=== PATIENT | male | born 1980 | race American Indian/Alaskan Native ===

== ENCOUNTER 2017-12-23 13:54 | Emergency (ER) | payer BC, SELFPAY ==
[2017-12-23 14:01] VITALS: BP 151/84; PULSE 74; RESP 16; TEMP 36.6; O2SAT 98
--- NOTE | 2017-12-23 14:25 | DI.RAD_ITS ---
SYMPTOMS/DIAGNOSIS: PROXIMAL 5TH METATARSAL PAIN AFTER TRAUMA LEFT FOOT: Three views. No acute fracture or dislocation is identified. No radiopaque foreign bodies are seen in the soft tissues.
--- NOTE | 2017-12-23 14:29 | ED.GENADUL_ITS ---
Discharge Plan Disposition Patient Disposition: HOME Condition: Fair Discharge Details Chief Complaint: Orthopedic Clinical Impression: Ankle sprain, Foot trauma Primary Care Provider: Keysha Ortiz ED Provider: Sherry Tanner Home Meds and New Rx's Prescriptions: Continue cyclobenzaprine 10 mg tablet 10 mg PO TID PRN (Reason: muscle spasm) Qty: 30 RF: 0 Aspirin/Acetaminophen/Caffeine [Excedrin Extra Strength Caplet] 1 EACH tablet 1 ea PO PRN PRNRF: 0 ibuprofen 200 MG capsule 200 mg PO PRN PRNRF: 0 Discharge Instructions Instructions: Ankle Sprain (ED) Additional Instructions: Encourage rest, ice, elevation. Tylenol and/or ibuprofen as needed for discomfort. You with ankle brace until pain has completely subsided. Please follow-up with primary care in the next 1-2 weeks if pain is not improved. Please avoid activities that cause increased pain. If you develop new or worsening symptoms please seek care urgently once again. I will contact you with any positive results from the x-ray that is still pending Referrals: Keysha Ortiz MD [Primary Care Provider] - Discharge Data Discharge Date/Time-TO BE ENTERED AT DEPARTURE: 12/23/17 16:10 Medical Decision Making Patient 37-year-old male presents today with chief complaint of left foot and ankle pain. He reports that he was playing football this morning, when another player kicked him in the lateral aspect of the ankle. States that that time he felt a pop. Denies any rotational injury. Denies any pain over the lateral malleolus. States the pain is posterior to this. Patient was wearing an ankle brace and states that he chronically wears ankle braces particularly when active as he has weak ankles. Has been able to ambulate but is walking with an antalgic gait. Reports the pain can be quite severe when trying to ambulate on the extremity. On exam, patient is not having any pain over the lateral malleolus. No pain on palpation over the Achilles. Full range of motion of the ankle. Negative Coyle test. No palpable defect of the Achilles. Pain seems to be more over the deltoid ligament. Patient is also endorsing discomfort with palpation over the proximal fifth metatarsal. Reports that somebody stepped on the foot playing football and since then he has had pain in this area. Denies any history of fracture injury to this foot. However, he does report that he has fractured his proximal fifth metatarsal on the contralateral side and that this feels quite similar. Will obtain radiographic images to evaluate for possible bony abnormality. Patient is declining any analgesics at this time. Review the x-ray and on. Appreciate any acute bony pathology. However, still pending radiologist report. Radiology report is currently delayed secondary to influx and [facility] being overloaded. Patient is wanting discharge at this time with radiology report still pending. I advised I would contact him with any positive results. Encourage rest, ice, elevation. Advised that we treat like an ankle sprain. Patient has had multiple of these in the past and seems well versed in how to care for these. He has a good ankle brace which I encouraged to continue with until pain is completely subsided. All his questions and concerns were addressed and he is in agreement with this plan. Final radiology reading concurrent with my assessment of the imaging, no acute abnormality HPI General Mode of arrival: ambulatory . Date/Time Provider Initiated Documentation: 12/23/17 14:17 . Limitations to Documentation: no limitations . Information obtained by: patient . History of Present Illness 37 year old M presents to the emergency department with the chief complaint of left foot and ankle pain, described as moderate, Quality is described as aching, and is localized to the left and lower extremity. Patient reports no radiation. Patient started experiencing this hour(s) and it has been constant. Immobilization improves symptom(s), Immoblization worsens symptoms . Patient notes no other symptoms.. Patient did receive the following treatments prior to arrival, other (patient was wearing lace up ankle brace at the time of the incident, still has this on. ) Related Data Home Medications Medication Instructions Recorded Confirmed Aspirin/Acetaminophen/Caffeine 1 ea PO PRN PRN 04/16/17 12/23/17 [Excedrin Extra Strength Caplet] ibuprofen 200 mg PO PRN PRN 04/16/17 12/23/17 cyclobenzaprine 10 mg tablet 10 mg PO TID PRN #30 tab 12/10/17 12/23/17 Previous Rx's Medication Instructions Recorded cyclobenzaprine 10 mg tablet 10 mg PO TID PRN #30 tab 12/10/17 Allergies Allergy/AdvReac Type Severity Reaction Status Date / Time sulfamethoxazole Allergy Mild Itching Unverified 12/23/17 14:04 [From Bactrim] trimethoprim [From Bactrim] Allergy Mild Itching Unverified 12/23/17 14:04 amoxicillin [Amoxicillin] Allergy Unknown Hives Unverified 12/23/17 14:04 amoxicillin trihydrate Allergy Unknown Hives Unverified 12/23/17 14:04 [From Augmentin] General Stated Complaint: Orthopedic RANJIT: 4 Review of Systems Constitutional Reports as per HPI, Denies chills, Denies fever(s) and Denies weakness Musculoskeletal Reports as per HPI, Reports abnormal gait (ambulating with a minimally antalgic gait), Denies joint swelling, Denies muscle weakness, Denies numbness and Denies tingling Integumentary/Breasts Denies rash, Denies skin swelling and Denies wounds Neurologic Reports as per HPI, Reports abnormal gait (ambulating with a minimally antalgic gait), Denies numbness, Denies tingling and Denies weakness PFSH Family History Father Essential hypertension Heart disease Hyperlipidemia Arthritis Other Alcohol abuse Social History 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al status: employed 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: [employer] Smoking/Tobacco Use Status: Former Tobacco Use substance use type: does not use seatbelt use: always Surgical History H/O Achilles tendon repair (Resolved) S/P tonsillectomy (Resolved ~11/17/10) Excision, Distal Clavicle (08/01/17) Repair, ACL (06/04/13) Exam Const General: cooperative, healthy appearing, comfortable, no acute distress, well developed and well groomed Nutritional Appearance: average body habitus and well nourished Orientation: alert and awake Eyes General: appearance normal, both eyes and all related structures Resp Effort & Inspection: normal respiratory effort, able to speak in complete sentences and no respiratory distress Auscultation: clear to auscultation bilaterally Cardio Rate: regular rate Rhythm: regular rhythm Heart Sounds: S1 normal and S2 normal Skin General skin exam: no rashes or lesions noted Trauma: no lacerations or abrasions Neuro General: alert, awake and oriented x3 Cognition: normal cognition Speech: speech normal Gait: antalgic (minimally antalgic gait, favoring the left ankle) Motor: muscle tone normal throughout Sensory Exam: no sensory deficits noted Extrem General: abnormal to inspection (exam of the LLE significant for pain with palpation over the deltoid ligament, worse toward the inferior and posterior areas. No pain with palpation voer the lateral or medial malleolus. Full ROM, plantar flexion does elicit discomfort. Pain over the proximal 5th metatarsal, no pain elsewhere abo), full ROM, normal capillary refill, no joint enlargement , no pedal edema and no calf tenderness (no pain with palpation over the proximal fibular head or neck) Psych Appearance: grossly normal and well kempt Mental Status: mental status grossly normal Speech and Movement: speech and movement normal Course Vital Signs Temperature 36.6 C 12/23/17 14:01 Pulse 74 12/23/17 14:01 Respiratory Rate 16 12/23/17 14:01 Blood Pressure 151/84 H 12/23/17 14:01 Pulse Oximetry 98 12/23/17 14:01 Temperature 36.6 C 12/23/17 14:01 Temperature Source Skin 12/23/17 14:01 Pulse 74 12/23/17 14:01 Respiratory Rate 16 12/23/17 14:01 Respiratory Effort Non-Labored 12/23/17 14:01 Blood Pressure 151/84 H 12/23/17 14:01 Blood Pressure Position Sitting 12/23/17 14:01 Pulse Oximetry 98 12/23/17 14:01 Oxygen Delivery Method Room Air 12/23/17 14:01 Oxygen Flow Rate 0 12/23/17 14:01 Pain Level 8 12/23/17 14:01
--- NOTE | 2017-12-23 16:16 | DI.VRAD_ITS ---
EXAM: XR Left Foot Complete, 3 or More Views CLINICAL HISTORY: 37 years old, male; Pain; Foot; Left; Patient HX: Proximal 5th metatarsal pain after trauma TECHNIQUE: Frontal, lateral and oblique views of the left foot. COMPARISON: No relevant prior studies available. FINDINGS: Limitations: The fifth digit is flexed. Bones/joints: Mild degenerative changes. Possible old healed medial malleolus fracture. No dislocation. Soft tissues: Unremarkable. No radiopaque foreign body. IMPRESSION: No definitive fracture, fracture lucency or dislocation. Flexion of the fifth digit, please correlate clinically Dictated and Authenticated by: Nasima Newby MD. Ordering:DMITRIY THOMPSON MD
== END 2017-12-23 16:10 | disposition home or self-care (01) ==
PROVIDERS: Emergency Provider Physician Assistant; PCP Internal Medicine
DX: S93.402A Sprain of unspecified ligament of left ankle, initial encounter (principal); W50.1XXA Accidental kick by another person, initial encounter; Y93.61 Activity, american tackle football
CPT/HCPCS: 99283; 73630; 99282

== ENCOUNTER 2018-06-04 13:45 | Outpatient (CLI) | payer BC, SELFPAY ==
--- NOTE | 2018-06-04 13:28 | DI.RAD_ITS ---
SYMPTOMS/DIAGNOSIS: COCCYX PAIN, M54.3, SACROCOCCYGEAL DISORDER COCCYX: The visualized portions of sacrum include the mid portion of the first sacral ala. The coccyx is suboptimally visualized due to the patient's body habitus but no gross abnormality is seen. If there is any further clinical question, then the examination could be correlated with a CT or MRI.
== END 2018-06-04 14:05 ==
PROVIDERS: PCP Internal Medicine; Visit Provider Internal Medicine
DX: M53.3 Sacrococcygeal disorders, not elsewhere classified (principal)
CPT/HCPCS: 72220

== ENCOUNTER 2018-06-25 08:57 | Outpatient (REF) | payer BC, SELFPAY ==
[2018-06-25 12:30] LABS: Cholesterol 181 mg/dL (50-200); Glucose 90 mg/dL (70-100); HDL Cholesterol 30 mg/dL (40-60); LDL CHOLESTEROL 111 mg/dL (<100); Triglyceride 197 mg/dL (30-150)
== END 2018-06-25 09:17 ==
LOC: LBN 08:57
PROVIDERS: PCP Internal Medicine; Visit Provider Internal Medicine
DX: E78.5 Hyperlipidemia, unspecified (principal); Z83.3 Family history of diabetes mellitus
CPT/HCPCS: 80061; 82947; 83721

== ENCOUNTER 2018-12-31 07:12 | Outpatient (CLI) | payer BC, SELFPAY ==
--- NOTE | 2018-12-31 11:11 | DI.RAD_ITS ---
EXAM: XR HIP LT COMPLETE AP PELVIS CLINICAL HISTORY: HIP PAIN TECHNIQUE: COMPARISON: LEFT HIP COMPLETE from 03/25/2012 FINDINGS: Three views were obtained. No bony or soft tissue abnormality seen. There are probable small access ory ossicles of the acetabula bilaterally. IMPRESSION:
--- NOTE | 2018-12-31 11:52 | DI.RAD_ITS ---
EXAM: XR HIP RT AP LAT ONLY CLINICAL HISTORY: HIP PAIN TECHNIQUE: COMPARISON: XR HIP LT COMPLETE AP PELVIS from 12/31/2018 FINDINGS: Two views were obtained. Possible small accessory ossicle of the acetabulum. No bony or soft tissue abnormality seen. IMPRESSION:
== END 2018-12-31 07:32 ==
PROVIDERS: PCP Internal Medicine; Visit Provider Student in an Organized Health Care Education/Training Program
DX: M25.552 Pain in left hip (principal); M25.551 Pain in right hip; M89.8X8 Other specified disorders of bone, other site
CPT/HCPCS: 73502

== ENCOUNTER 2019-01-18 14:52 | Emergency (ER) | payer BC, SELFPAY ==
[2019-01-18 14:58] VITALS: BP 170/93; PULSE 77; RESP 16; TEMP 36.6; O2SAT 97
--- NOTE | 2019-01-18 14:58 | W.ED.GENAD ---
Discharge Plan Disposition Patient Disposition: HOME Condition: Good Discharge Details Chief Complaint: Orthopedic Clinical Impression: Acute knee pain Primary Care Provider: Keysha Ortiz ED Provider: Sherry Tanner Home Meds and New Rx's Prescriptions: Continued famotidine 20 mg tablet 20 mg PO BID Qty: 180 RF: 3 Aspirin/Acetaminophen/Caffeine [Excedrin Extra Strength Caplet] 1 EACH tablet 1 ea PO PRN PRNRF: 0 nortriptyline 25 mg capsule 25 mg PO QHS PRN (Reason: migraine headache) Qty: 90 RF: 1 acetaminophen [Tylenol] 325 mg Tablet 1,000 mg PO PRN PRNRF: 0 ibuprofen 600 mg Tablet 600 mg PO PRN PRNRF: 0 meloxicam 15 mg Tablet,Disintegrating 15 mg PO HS RF: 0 Discharge Instructions Instructions: Knee Pain (ED) Additional Instructions: Encourage hydration. Please continue with ibuprofen 600 mg every 6 hours for discomfort and inflammation. You may augment this with Tylenol as needed. Rest, ice, elevation. Please continue with knee immobilizer for pain persist. He may take this off and practice gentle range of motion. Please avoid activities that cause undue discomfort. Please follow-up with orthopedics, please call Sunday to schedule follow-up appointment. If you develop fever/chills, increased pain or other new/worsening symptoms please seek care urgently once again. Stand Alone Forms: Work Release Referrals: Sedrick Vera MD [ [facility] STAFF PHYSICIAN] - Keysha Ortiz MD [Primary Care Provider] - Discharge Data Discharge Date/Time-TO BE ENTERED AT DEPARTURE: 01/18/19 16:10 Medical Decision Making Patient is a 38-year-old male presenting with chief complaint of right knee pain. He reports that he has had ACL repair on this knee historically. Reports that he typically has no knee pain but occasional has catching/locking and associates this with twisting or squatting movements. Reports that today he twisted after closing a window shade and had a sudden onset of pain. Unable to flex past 20 now. Reports severe pain with movement of the knee. Has kept his let in his post operative brace and has this locked in a straight leg position. With this on has been able to ambulate. Took tylenol and/or Ibuporfen as needed for discomfort. States that he has had catching and locking in the knee historically but typically this resolves fairly quickly after incident. Reports that this is worse with any rotational movements or squatting. Denies any fevers or chills. HAs not noting swelling. On exam, patient appears uncomfortable. He ambulated in a straight leg immobilizer with weightbearing well. However, he has severe pain with any type of flexion, unable to flex approximately 20 degrees. Ligamentously intact. No effusion. No erythema or warmth. I have low suspicion for fracture, feel that imaging is appropriate given the severity of his discomfort and surgical history. Reviewed x-rays, no acute abnormality is noted. He does have osteoarthritic changes but I do not appreciate any acute issues causing today's discomfort. Patient was given a muscle relaxer to try to help with range of motion. After this was given, attempted to range the knee further and was only able to get to approximately [address] Alvarez who does not feel emergent issue and is likely associated with muscle spasm. Advised continuing with anti-inflammatory brace to help with discomfort. I discussed this plan with the patient. Given his history, I am concerned for possible meniscal injury. He was given return precautions. He will call orthopedics on Sunday to schedule follow-up. All of his questions and concerns were addressed and he is in agreement this plan. HPI General Mode of arrival: ambulatory. Date/Time Provider Initiated Documentation: 01/18/19 14:58. Limitations to Documentation: no limitations. Information obtained by: patient and RN notes reviewed. History of Present Illness 38 year old M presents to the emergency department with the chief complaint of right knee pain, described as moderate (no pain when at rest, pain with ambulation or flexion), Quality is described as stabbing, and is localized to the right and lower extremity. Patient reports no radiation. Patient started experiencing this hour(s) and it has been constant. Immobilization improves symptom(s), Movement worsens symptoms . Patient notes no other symptoms.. Patient did receive the following treatments prior to arrival, NSAID Related Data Home Medications Medication Instructions Recorded Confirmed Aspirin/Acetaminophen/Caffeine 1 ea PO PRN PRN 04/16/17 01/18/19 [Excedrin Extra Strength Caplet] nortriptyline 25 mg capsule 25 mg PO QHS PRN #90 cap 10/08/18 01/18/19 famotidine 20 mg tablet 20 mg PO BID #180 tab 12/17/18 01/18/19 acetaminophen [Tylenol] 1,000 mg PO PRN PRN 01/18/19 01/18/19 ibuprofen 600 mg PO PRN PRN 01/18/19 01/18/19 meloxicam 15 mg PO HS 01/18/19 01/18/19 Previous Rx's Medication Instructions Recorded nortriptyline 25 mg capsule 25 mg PO QHS PRN #90 cap 10/08/18 famotidine 20 mg tablet 20 mg PO BID #180 tab 12/17/18 Allergies Allergy/AdvReac Type Severity Reaction Status Date / Time sulfamethoxazole Allergy Mild Itching Verified 01/18/19 15:02 [From Bactrim] trimethoprim [From Bactrim] Allergy Mild Itching Verified 01/18/19 15:02 amoxicillin [Amoxicillin] Allergy Unknown Hives Verified 01/18/19 15:02 amoxicillin trihydrate Allergy Unknown Hives Verified 01/18/19 15:02 [From Augmentin] General RANJIT: 4 Review of Systems Constitutional Constitutional: Reports as per HPI, Denies chills, Denies fever(s), Denies headache(s) and Denies weakness ENT Ears, Nose, Mouth, and Throat: Denies headache(s) Cardiovascular Cardiovascular: Reports as per HPI Respiratory Respiratory: Reports as per HPI and Denies cough Musculoskeletal Musculoskeletal: Reports as per HPI, Reports abnormal gait and Denies tingling Integumentary/Breasts Skin/Breast: Reports as per HPI, Denies rash and Denies wounds Neurologic Neurologic: Reports as per HPI, Reports abnormal gait, Denies headache(s), Denies tingling, Denies paresthesias and Denies weakness [facility] Medical History Complete tear, knee, anterior cruciate ligament (Resolved 04/12/13) Repair 06-04-13 History of low back pain (Acute) Hx of migraines (Acute) Lumbar disc herniation (Acute) Surgical History Excision, Distal Clavicle (08/01/17) INGA PROCEDURE RIGHT- H/O Achilles tendon repair (Resolved) H/O surgical procedure (Resolved) a. Tonsillectomy 11/2010 b. Right ACL repair 05/2013 c. 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 SOCIAL SERVICES Pets and animals: Yes Pets and animals: dog(s) How often do you talk on the phone with friends or family?: three or more times per week Panel score (0-1 are the most socially isolated patients): 1 What type of physical activity do you participate in: regular exercise and other Details: weight lifting Duration: 45-60 minutes/day Frequency: 3-4 times per week Seatbelt use: always Drive intox or ride w/intox 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 helper: No Working smoke detector in home: Yes Fire extinguisher in home: Yes Carbon monox detector in home: Yes Do you feel safe at home: Yes Exam Const General: cooperative, healthy appearing, comfortable, no acute distress, well developed and well groomed Nutritional Appearance: well nourished and overweight Orientation: alert and awake Resp Effort & Inspection: normal respiratory effort, able to speak in complete sentences and no respiratory distress Cardio Rate: regular rate Rhythm: regular rhythm Skin General skin exam: no rashes or lesions noted Lesions: no lesions Rashes: no rashes Trauma: no lacerations or abrasions Neuro General: alert and awake Cognition: normal cognition Speech: speech normal Gait: normal gait Motor: muscle tone normal throughout Sensory Exam: no sensory deficits noted Extrem Right lower extremity: normal to inspection, normal capillary refill, no joint enlargement, hip/thigh Details: normal to inspection, knee Details: normal to inspection and knee ligament exam normal Details: anterior drawer test normal, posterior drawer test normal, valgus stress test normal and varus stress test normal; no tenderness (indicates the posterior medial aspect of knee as area of pain, none with palpation), no swelling, ROM abnormal, no abrasions, no lacerations, no ecchymosis, no deformity and no unusual warmth and lower leg Details: normal to inspection and no edema; no erythema, no tenderness, no localized swelling and no palpable cords; ROM limited (full extension, limited flexion to only 20 degrees) Psych Appearance: grossly normal and well kempt Mental Status: mental status grossly normal Speech and Movement: speech and movement normal
--- NOTE | 2019-01-18 15:07 | DI.RAD_ITS ---
EXAM: XR KNEE RT 4V AP,LAT,ADIN,PAT INDICATION: knee pain, limited ROM. COMPARISON: RIGHT KNEE LIMITED 1 OR 2 VIEW from 06/04/2013 TECHNIQUE: 2D digital imaging was performed. FINDINGS: Patient is status post ACL repair. There are advanced underlying degenerative changes throughout. N o fracture or joint effusion is seen. IMPRESSION: Postsurgical and degenerative changes.
[2019-01-18] MEDS: diazePAM 5 MG TAB PO (15:13)
--- NOTE | 2019-01-18 16:20 | DI.VRAD_ITS ---
PROCEDURE INFORMATION: Exam: XR Left Knee Exam date and time: 01/18/2019 3:10 PM Clinical history: 38 years old, male; Pain; Knee; Right; Prior surgery; Surgery date: 6+ months; Surgery type: Acl repair 6 years ago TECHNIQUE: Imaging protocol: XR Left knee. Views: 4 or more views. COMPARISON: No relevant prior studies available. FINDINGS: Bones/joints: Screw in lateral femoral condyle Tricompartmental joint space narrowing and osteophyte formation consistent with degenerative changes. Well-corticated ossific fragment along the lower pole of the patella consistent with old avulsion fracture. There is no evidence of acute fracture.There is no evidence of malalignment or dislocation. Soft tissues: Soft tissue swelling of the knee IMPRESSION: 1. Tricompartmental joint space narrowing and osteophyte formation consistent with degenerative changes. 2. Well-corticated ossific fragment along the lower pole of the patella consistent with old avulsion fracture. 3. There is no evidence of acute fracture.There is no evidence of malalignment or dislocation. Dictated and Authenticated by: Donovan Conrad MD. Ordering:DMITRIY Powell MD
== END 2019-01-18 16:10 | disposition home or self-care (01) ==
PROVIDERS: Emergency Provider Physician Assistant; PCP Internal Medicine
DX: M25.561 Pain in right knee (principal); X50.9XXA Other and unspecified overexertion or strenuous movements or postures, initial encounter; Z87.828 Personal history of other (healed) physical injury and trauma
CPT/HCPCS: 99283; 73564

== ENCOUNTER 2019-01-27 01:14 | Outpatient (CLI) | payer BC, SELFPAY ==
--- NOTE | 2019-01-27 07:56 | DI.MRI_ITS ---
EXAM: MR LOWER JOINT RT WO CLINICAL HISTORY: Locked knee, chondromalacia patalla rt knee,internal derangement, m22.41,m23.91, c oncern for mechanical block to motion,s/p acl repair, knee locks TECHNIQUE: Multiplanar multisequence MRI was performed. COMPARISON: MRI R LOWER JOINT WO CONT from 05/07/2013 XR KNEE RT 4V AP,LAT,ADIN,PAT from 01/18/2019 FINDINGS: The anterior cruciate ligament is not visualized distally consistent with a tear. The posterior cruc iate ligament is intact. Both the medial and lateral collateral ligaments are unremarkable. The extensor mechanism and medial lateral retinaculum are unremarkable. Lateral meniscus is intact. There is decreased size and abnormal signal in the body and posterior ho rn of the medial meniscus. This may reflect postsurgical change, degeneration or tear. There is loss of the articular cartilage in the medial femoral tibial joint space. The cartilage in the patellofemoral joint and in the lateral femoral tibial joint space remain intact. There is artifact from an orthopedic screw in the distal femur. Marrow signal is within normal limit s. No findings to suggest an occult fracture or avascular necrosis. Periarticular spurring is seen in all 3 joint compartments. There is a moderate amount of fluid seen in the joint space. No loose body is appreciated. The muscles show normal signal and size. No significant muscular fatty atrophy is present. No soft tissue mass is appreciated. IMPRESSION: 1. Findings suspicious for an anterior cruciate ligament tear. 2. History of anterior cruciate ligament repair, orthopedic screw in the distal femur. 3. Normal signal and size of the body and posterior horn of the medial meniscus. This may be postsur gical, degenerative or represent a tear. 4. Degenerative changes in the right knee. The findings are most marked in the medial femoral tibial joint space.
== END 2019-01-27 01:34 ==
PROVIDERS: PCP Internal Medicine; Visit Provider Student in an Organized Health Care Education/Training Program
DX: M23.91 Unspecified internal derangement of right knee (principal); M22.41 Chondromalacia patellae, right knee; S83.511A Sprain of anterior cruciate ligament of right knee, initial encounter; M17.11 Unilateral primary osteoarthritis, right knee; Z98.890 Other specified postprocedural states
CPT/HCPCS: 73721

== ENCOUNTER 2019-01-28 13:24 | Outpatient (CLI) | payer BC, SELFPAY ==
--- NOTE | 2019-01-28 13:14 | DI.RAD_ITS ---
EXAM: XR KNEES MERCHANT ONLY INDICATION: right knee pain. COMPARISON: XR KNEE RT 4V AP,LAT,ADIN,PAT from 01/18/2019 TECHNIQUE: 2D digital imaging was performed. FINDINGS: Merchant views of the knees were obtained. This is a limited examination of the knees. The left shahrzad ears grossly unremarkable. There is normal alignment. Right knee shows prominent periarticular spur ring. There is also mild joint space narrowing.
== END 2019-01-28 13:44 ==
PROVIDERS: PCP Internal Medicine; Visit Provider Physician Assistant
DX: M25.561 Pain in right knee (principal); M22.41 Chondromalacia patellae, right knee
CPT/HCPCS: 73565

== ENCOUNTER 2019-05-22 13:01 | Outpatient (CLI) | payer BC, SELFPAY ==
[2019-05-22 14:00] LABS: HCT 41.3 % (40.0-50.0); HGB 14.1 g/dL (13.5-17.5); Mean Corp. HGB Concentration 34.1 g/dL (32.0-36.0); Mean Corpuscular Hemoglobin 31.1 pg (27.0-33.0); Mean Corpuscular Volume 91.2 fL (80-95); Mean Platelet Volume 11.2 fL (8.0-11.0); Platelet Count 258 x1000/uL (130-400); RBC 4.53 m/cumm (4.50-6.00); RBC Distribution Width 13.2 % (11.8-14.1); White Blood Cell Count 7.86 k/cumm (4.4-10.8)
[2019-05-22 14:54] LABS: Anion Gap 10.1 mmol/L (3-11); BUN 14 mg/dL (7-18); CO2 25.9 mmol/L (21.0-32.0); CREATININE 0.97 mg/dL (0.70-1.30); Chloride 103 mmol/L (98-107); Glucose 100 mg/dL (74-106); Potassium 4.3 mmol/L (3.5-5.1); Sodium 139 mmol/L (136-145)
== END 2019-05-22 13:21 ==
PROVIDERS: PCP Internal Medicine; Visit Provider Student in an Organized Health Care Education/Training Program
DX: M25.561 Pain in right knee (principal); M17.31 Unilateral post-traumatic osteoarthritis, right knee; Z01.818 Encounter for other preprocedural examination; Z01.812 Encounter for preprocedural laboratory examination
CPT/HCPCS: 36415; 80048; 85027

== ENCOUNTER 2019-05-22 15:26 | Outpatient (CLI) | payer BC, SELFPAY ==
--- NOTE | 2019-05-22 14:31 | DI.RAD_ITS ---
EXAM: XR STANDING ALIGNMENT CLINICAL HISTORY: PREOPERATIVE PLANNING. TECHNIQUE: 2D digital imaging was performed. COMPARISON: XR KNEE RT 4V AP,LAT,ADIN,PAT from 01/18/2019 XR KNEES MERCHANT ONLY from 01/28/2019 FINDINGS: BONES: No acute fracture is present. No bony destructive lesion is seen. The right lower extremity me asures 98.8 cm. The left lower extremity measures 98.9 cm. JOINTS: In the right knee, there is moderate periarticular spurring present. There is again seen a s crew in the distal right femur. The left knee is well maintained. SOFT TISSUE: Normal. IMPRESSION: Osteoarthritis of the right knee. DATA REPOSITORY: RADIATION DOSE DELIVERED:
== END 2019-05-22 15:46 ==
PROVIDERS: PCP Internal Medicine; Visit Provider Physician Assistant
DX: M17.11 Unilateral primary osteoarthritis, right knee (principal)
CPT/HCPCS: 77073

== ENCOUNTER 2019-05-28 09:18 | Observation (INO) | payer BC, SELFPAY ==
[2019-05-22 13:08] VITALS: BP 158/91; PULSE 110; RESP 18; TEMP 36.6; O2SAT 95
[2019-05-22 13:38] VITALS: BP 138/92; PULSE 99
--- NOTE | 2019-05-22 13:45 | NUR.NOTE ---
Addendum entered by Omar Koehler 05/22/19 13:54: Spoke with Magdalena Davis regarding BP as well, office will recheck with storm BP cuff. Original Note: Pt came in for pre-op: Initial BP taken : 180/106, on left arm, retaken again, 158/91, changed to right arm, 148/103. Let patient rest, continued with pre-op questions, retook BP at end of visit. 138/92. Pt. states his BP is normally 120/80's range. Informed Aniket Boyer PA-C at orthopedic clinic of BP, Pt. is having a visit with PA. Suggestion made for BP to be further evaluated in office, by Aniket. Nursing Note:
[2019-05-28] VITALS (9 sets, daily range): BP systolic 116–143; BP diastolic 68–98; PULSE 81–104; RESP 12–20; TEMP 36–37; O2SAT 95–98
[2019-05-28] MEDS: Lactated Ringers 1,000 ML 80 ML IV ×3 (10:11→23:30)
[2019-05-28] MEDS: Acetaminophen 500 MG TAB 1000 MG PO ×2 (10:12→19:41)
[2019-05-28] MEDS: Gabapentin 300 MG CAP PO ×2 (10:12→21:44)
[2019-05-28] MEDS: Celecoxib 200 MG CAP 400 MG PO (10:12)
[2019-05-28] MEDS: ceFAZolin 2 GM/50 ML BAG IVPB (12:08)
[2019-05-28] MEDS: Ketorolac 30 MG/ML VIAL (13:05)
[2019-05-28] MEDS: Bupivacaine 0.25% Pres-Free 30 ML VIAL (13:05)
[2019-05-28] MEDS: Normal Saline 20 ML VIAL (13:08)
--- NOTE | 2019-05-28 16:25 | PT.INIE ---
Date of service: 05/28/19 Time of Service: 16:25 PT Notes Physical Therapy Inpatient Initial Evaluation Date: 05/28/2019 Referring Doctor: Mir George MD PT Orders: PT CONSULT: Status post Ortho surgery Precautions: Fall. Standard. 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 PMHX: Medical History Chondromalacia patellae, right knee (Inactive) Chondromalacia, right knee (Inactive) Complete tear, knee, anterior cruciate ligament (Resolved 04/12/13) Repair 06-04-13 History of low back pain (Acute) Hx of migraines (Acute) Internal derangement of right knee (Inactive 01/18/19) Lumbar disc herniation (Acute) Surgical History Excision, Distal Clavicle (08/01/17) INGA PROCEDURE RIGHT- H/O Achilles tendon repair (Resolved) H/O surgical procedure (Resolved) a. Tonsillectomy 11/2010 b. Right ACL repair 05/2013 c. Right Achilles tendon repair 02/04/2014 Repair, ACL (06/04/13) R ACL reconstruction-bone patellar tendon autograft-Dr Whitaker 11/17/15 removal hardware right proximal tibia S/P Achilles tendon repair (Resolved 02/04/14) S/P tonsillectomy (Resolved ~11/17/10) Social History/Home Situation: Patient lives with his mother and in a private home with 3 steps to enter, rails on both sides. 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 Independent with all aspects of ADLs prior to surgery. Equipment Owned/DME: Bilateral axillary crutches Subjective: Patient complains of headache which he attributes to the lack of caffeine which he regularly takes. He has not had anything to eat since yesterday evening. He he reports still being numb in bilateral lower extremities. He is agreeable to a PT consult and mobility assessment. Objective: General Observation: Patient seen resting in bed. Whiting catheter in place. IV in the left UE. Anti-thromboembolic pumps to left leg. Inderjit wraps to right LE Mental Status: Alert and oriented x 4 Pain: 0/10 Vital Signs: 116/70 4 mmHg, 82 bpm, 96% on room air ROM: Right Upper Extremity: Shoulder Flexion WFL. Shoulder abduction WFL. Elbow flexion WFL. Wrist flexion WFL. Opening and closing of hand WFL. Left Upper Extremity: Shoulder Flexion WFL. Shoulder abduction WFL. Elbow flexion WFL. Wrist flexion WFL. Opening and closing of hand WFL. Right Lower Extremity: Hip flexion WFL. Hip abduction WFL. Knee flexion -5 to 115 degrees. Knee extension -5 degrees. Ankle dorsiflexion WFL. Ankle plantarflexion WFL. Left Lower Extremity: Hip flexion WFL. Hip abduction WFL. Knee flexion WFL. Ankle dorsiflexion WFL. Ankle plantarflexion WFL. Strength: Right Upper Extremity: Shoulder flexors 5/5. Shoulder abductors 5/5. Elbow flexors 5/5. Elbow extensors 5/5. Color Control Operator strong. Left Upper Extremity: Shoulder flexors 5/5. Shoulder abductors 5/5. Elbow flexors 5/5. Elbow extensors 5/5. Color Control Operator strong. Right Lower Extremity: Hip flexors 5/5. Hip abductors 5/5. Knee flexors 3-/5. Knee extensors 3-/5. Ankle dorsiflexors 5/5. Ankle plantarflexors 5/5. Left Lower Extremity:Hip flexors 5/5. Hip abductors 5/5. Knee flexors 5/5. Knee extensors 5/5. Ankle dorsiflexors 5/5. Ankle plantarflexors 5/5. Sensation: Patient reports numbness on bilateral lower extremities but is aware of their position in space Bed Mobility/Transfers: Rolling SBA Supine to sit SBA Sit to supine SBA Sit to stand CGA Stand to sit CGA Bed to chair CGA Chair to bed CGA Gait: Patient tolerated level surface ambulation of 200 feet with CGA and WBAT on the right LE using a front wheeled walker with a reciprocal step through gait pattern. Patient appeared stable despite him saying that he continues to feel numb on both LE. Patient stated that he still has the headache but of less intensity after ambulation activity. Balance: Static Sitting: Normal Dynamic Sitting: Normal Static Standing: Fair Dynamic Standing: Fair Special Tests: Mobility Limitations Standardized Measure [facility] 6 clicks Basic Mobility Inpatient Short Form: Raw Score: 20 CMS Score: 36% deficit Informed Consent/Education: Patient instructed in purpose of PT consult and plan of care. Assessment: Difficulty in walking, weakness on right knee major muscle groups, impairment in mobility ADL performance, and unsteadiness resulting from postoperative status. 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 Patient presents with clinical signs and symptoms consistent with current/admitting diagnoses that have resulted to mobility limitations, gait instability, generalized weakness, and impairment of motor control as demonstrated by the following impairment level findings: 1. Decreased strength to R knee major muscle groups 2. Impaired standing balance 3. Impaired activity tolerance 4. Limitation of joint range of motion in right knee Impairments are contributing to the following functional limitations: 1. Inability to safely ambulate without assistive device and physical assistance 2. Increase completion time for mobility ADL performance 3. Increased fall risk 4. Inability to negotiate steps alone safely 5. Inability to return to vocational activities Patient is assessed as a 29251 moderate complexity based on the following: History: 38-year-old male with impairment level findings, functional limitations, and [facility] deficit score of 36% Examination: Demonstrable impairment in strength, balance, and range of motion with underlying impairments and functional limitations as documented above Presentation:Evolving Decision Makin moderate complexity Goals: Goals X1 week 1. Supine-Sit independent 2. Sit-Supine independent 3. Sit-Stand independent 4. Stand-Sit independent 5. Bed-Chair independent 6. Chair-Bed independent 7. Independent gait on level surface with use of bilateral crutches for at least 300 feet without report of pain nor dyspnea 8. Independent stair negotiation while holding onto bilateral rails for at least 5 steps without report of pain nor dyspnea 9. Independent with home exercise program 10. Good static and dynamic standing balance/tolerance Plan of Care/Treatment Plan: 1-2x/day, 7 days/week x 1 week. Plan of care has been reviewed with the CANDY CATCHER providing the service under Physical Therapy direction. Initiate Physical Therapy intervention for strengthening, bed mobility, transfers, gait, stairs, balance training, use of assistive device. DISCHARGE RECOMMENDATIONS: May benefit from skilled physical therapy services according to orthopedic surgeon's timeline recommendations. Patient will be educated and trained on home exercise program per [facility] exercise protocol in preparation for outpatient physical therapy services. TREATMENT CODE/TIME: 02478 x 30 minutes, 02762 x 10 minutes, beginning at 16:25 PM. Thank you very much for this referral. Chandrika Lujan PT, DPT, CLT [facility] [place], [place]
[2019-05-28] MEDS: ceFAZolin 1 GM/50 ML BAG IVPB (18:22)
[2019-05-28] MEDS: oxyCODONE 5 MG TAB PO ×2 (18:41→23:31)
[2019-05-28] MEDS: Famotidine 20 MG TAB PO (19:41)
[2019-05-28] MEDS: Ibuprofen 800 MG TAB PO (19:41)
[2019-05-29] MEDS: ceFAZolin 1 GM/50 ML BAG IVPB (01:26)
[2019-05-29 03:37] VITALS: BP 119/73; PULSE 105; RESP 19; TEMP 36.7; O2SAT 96
[2019-05-29] MEDS: oxyCODONE 5 MG TAB PO ×2 (03:46→09:07)
[2019-05-29] MEDS: diphenhydrAMINE 25 MG CAP (05:59)
--- NOTE | 2019-05-29 06:50 | W.PM.OP ---
Date of service: 05/28/19 Time of Service: 15:50 Operative Note Operative Note DATE OF PROCEDURE: 05/28/19 PRE-OP DIAGNOSIS: Right posttraumatic knee osteoarthritis POST-OP DIAGNOSIS: same PROCEDURE: Right Total Knee Replacement with intraoperative navigation and hardware removal SURGEON: Mir George FUSING MACHINE FEEDER: Nii Boyer ANESTHESIA: regional and spinal ESTIMATED BLOOD LOSS: 300 PATHOLOGY: none sent TOURNIQUET TIME: 0 COMPLICATIONS: None Patient was transported to: PACU Patient's condition: stable Implants: 1. Depuy Attune Cementless Cruciate Retaining Femoral Component, Size 8 2. Depuy Attune Cementless Rotating Platform Tibial Component, Size 6 3. Depuy Attune 8 x 6 mm CR/RP Poly 4. Depuy Attune Patellar Component, Size 38mm Indications: I have seen Eduardo in clinic for symptoms of RIGHT knee arthritis, confirmed with radiographic findings. He has exhausted nonoperative methods and was having significant limitations in daily function and desired better function and less pain. I discussed the technical details of a knee replacement. I explained the risks of the procedure to include, but not limited to, bleeding, infection, pain, stiffness, fracture, damage to nerves and vessels, damage to muscles and tendons, loosening, need for repeat procedure, blood clot and cardiopulmonary demise. Despite these risks, Eduardo elected to proceed. Findings: There was significant signs of arthritis throughout the knee. These involve all 3 compartments but were worse over the lateral femur and the medial tibia. A single screw within the lateral femur was removed. Procedure Description: Eduardo was greeted in the preoperative holding area where the correct side was identified and marked. The consent was reviewed with the patient and signed. The history and physical was updated. All questions were answered. Preoperative mediacations were administered: Acetaminophen 1000mg, Celebrex 400mg, and Gabapentin 300mg. An adductor canal block was then administered by the anesthesia team in the PACU. He was taken back to the operating room. A spinal anesthestic was then administered. The patient was placed into the supine position on the operating room table. A nonsterile tourniquet was placed high onto the leg but only used for cementing. Posts were placed for positioning during the procedure. All bony prominences were well padded. Prophylactic antibiotics in the form of cefazolin were administered. 1g of Tranxemic Acid was given intravenously within 30 minutes of incision. The right leg was then prepped with Chloraprep and draped in a standard fashion with impervious stockinette. A second prep with Chloraprep was performed prior to application of Iodine impregnated skin protection. A timeout to confirm correct identity, side and site, procedure, allergies, anesthesia, and medical concerns was performed. With the knee in some flexion, a midline incision was made overlying the knee. Full thickness skin flaps were raised once the extensor mechanism was encountered. These were raised medially and laterally. Any bleeding was controlled with electrocautery. Once the extensor mechanism was fully exposed, a medial parapatellar arthrotomy was performed in a flexed position. All bleeding from the arthrotomy and the geniculate arteries was coagulated. A medial subperiosteal peel was performed with electrocautery to the midcoronal plane. The fat pad was removed while keeping the patellar tendon protected. The anterior distal femur synovium was removed for later visualization. The ACL and PCL were resected and the anterior horn of the lateral meniscus was transected. The knee was then flexed with the patella everted. Large osteophytes from the tibia were removed. Large osteophytes from the femur were removed. A single starting pin was then placed 1cm anterior to the PCL insertion and the notch in the direction of the femoral head. The OrthoAlign device was applied over the pin. It was oriented to be in line with the epicondylar axis and the trochlear groove. It was then pinned into place. The navigation computer was then turned on and calibrated. The distal femur cut was set at 0 degrees varus/valgus and 2.5 degrees flexion. The distal femur cutting guide then was positioned for a 9mm cut. The distal femur was cut with an oscillating saw while protecting the soft tissues. The tibia was then addressed. The OrthoAlign device was placed over the tibial tubercle and medial tibia and secured into position. Once again, OrthoAlign was calibrated and then set for a 0 degree varus/valgus cut and 3 degrees of posterior slope. With this locked into position, the cut thickness stylus was used to assess cut thickness. The medial side, most involved side, was set for a 3mm cut. This was then held in position and pinned into place with 2 additional pins and a cross pin for stability. The medial and lateral collateral ligaments were protected and the cut was performed. With this completed, it was assessed and noted to be of appropriate dimensions. The guide and OrthoAlign was removed. A spacer block was inserted and the knee was brought into extension. The 6mm spacer block provided full extension, without hyperextension and with stability of both the medial and lateral collateral ligaments was assessed. The pins from the femur and the tibia were then removed. The distal femur was then sized. The anterior stylus was placed onto the lateral ridge of the anterior femur. This indicated a size 8 femur. The external rotation of the guide was adjusted to 3 degrees to match the epicondylar axis, perpendicular to Todd?s line. The 4-in-1 cutting guide was the placed. The posterior medial femur cut was evaluated and appeared of good thickness. The spacer block was inserted underneath the cutting guide and stability was confirmed in 90 degrees of flexion. An remi wing was used to confirm appropriate position of the anterior cut to avoid notching. This cutting guide was ensured to be flush on the cut surface and then pinned into place with headed pins. While protecting the soft tissues, quad tendon, and collateral ligaments, the anterior and posterior cuts were performed with a saw. The central two pins were removed and the posterior and anterior chamfers were cut next. The notch-cutting guide was placed. This was pinned to lateralize the femoral component as much as possible while keeping it flush on the cut surface. This was then pinned into position. A reciprocating saw was used to make the notch cut. A rasp smoothed the cut surfaces. The medial and lateral menisci were removed. A trial femoral component was then inserted, impacted down to the cut surfaces, and the lug holes were drilled. A provisional trial tibial component was placed and the knee was brought through range of motion. There was noted to be excellent extension and flexion. There was no significant instability. The patella was tracking without thumbs. A size 6mm polyethylene component provided the best range of motion and stability with less than 2mm gapping with medial and lateral stress and full extension without significant hyperextension. The tibial cut surface was fully exposed. The tibia was then sized as a 6. The tibia had been previously marked during trialing to correspond to the center of the tibial component to help with rotation. The trial was aligned to this nii, approximately rotated to the medial 1/3rd of the tibial tubercle. The trial was pinned into place. The tibia was prepared with a reamer and a keel punch and lug holes. The knee was then brought into extension and the patella was measured as 32mm. Using the patellar clamp and cut guide, this was resected to a flat surface with at least 13mm of thickness remaining. The size 38mm patella fit the best. This was oriented and then clamped into position. The lugs were drilled. The trial components were removed. The final components were opened on the back table. The periosteal and capsular tissues, especially posteriorly, around the knee were then systematically injected with a periarticular cocktail consisting of 50cc 0.25% Marcaine, 30mg Ketorolac, 20cc of Exparal and 50cc of injectable saline. The knee was thoroughly irrigated with a pulse lavage and dried. Irrisept was also used to irrigate the tissues. On the back table, with the implants opened, the cement was mixed. One batches of high viscosity cement were prepared with vacuum assistance. After the cement was ready a small amount was placed on the cut surface of the patella and the patellar button was clamped into position and held. During this process attention was turned to the gutters of the knee and for all interfaces for any excess cement. While the cement was hardening, the cementless knee components were placed. Starting with the tibial component, the tibia was subluxed anteriorly and the lug holes of the component were lined up. The tibia was then impacted with an impactor and mallet until the tibial component was in contact with the tibia. The final polyethylene component was inserted. Then, the femoral component was inserted. The lug holes were aligned and the component was impacted into position. The knee was irrigated with Irrisept chlorhexadine solution. This was allowed to sit in the knee for 3 minutes. After the cement had finally cured, approximately 15min, the clamp was removed from the patella and the knee was taken through range of motion. The patella was tracking with a no-thumbs technique. The capsule was then reapproximated with a No. 1 Vicryl at multiple locations. The capsule was finally closed with a No. 2 Stratafix, barbed suture. The tourniquet was then released and the arthrotomy appeared watertight without significant bleeding. The second dosing of 1g TXA was started. Deep tissues were then reapproximated with 0 Vicryl and 2-0 Vicryl. The skin was closed with a running 3-0 Monocryl in a subcuticular fashion. This was reinforced with skin glue. A Mepilex silver dressing was applied along with a [id number] WOLF wrap. A CryoCuff was applied. Eduardo was transferred to the hospital bed without difficulty an suffering no apparent complication. Eduardo has a good prognosis. Physical therapy will start today and without restrictions, weight-bearing as tolerated. Aspirin 81mg BID will be used for DVT prophylaxis.
[2019-05-29 07:19] VITALS: BP 159/72; PULSE 93; RESP 17; TEMP 36.5; O2SAT 97
[2019-05-29] MEDS: Acetaminophen 500 MG TAB 1000 MG PO (07:54)
[2019-05-29] MEDS: Famotidine 20 MG TAB PO (07:55)
[2019-05-29] MEDS: Ibuprofen 800 MG TAB PO (07:55)
[2019-05-29] MEDS: Lisinopril 5 MG TAB PO (07:55)
--- NOTE | 2019-05-29 08:09 | W.PM.DS.N ---
Date of service: 05/29/19 Time of Service: 08:09 DS: Diagnosis Discharge Diagnosis (1) Post-traumatic osteoarthritis of right knee: Status: Chronic Discharge Plan Disposition Patient Disposition: HOME Condition: Good Discharge Details Reason For Visit: RIGHT KNEE DJD Admit Date/Time: 05/28/19 09:18 Admit Provider: Mir George Attending Provider: Mir George Primary Care Provider: Keysha Ortiz Hospital Course Hospital Course: Patient was admitted to the medical/surgical floor following the procedure. It was tolerated well without any notable medical, surgical, or anesthetic complications. Mobilization began postoperatively. The read catheter was removed and voiding spontaneously. Vitals were stable. Physical therapy worked with the patient and was cleared for discharge home. No acute medical issues. Home Meds and New Rx's Prescriptions: New aspirin 81 mg tablet,delayed release (DR/EC) 81 mg PO BID Qty: 60 RF: 0 acetaminophen 500 mg tablet 1,000 mg PO Q8H PRN (Reason: pain) Qty: 90 RF: 3 gabapentin 300 mg capsule 300 mg PO QHS Qty: 14 RF: 0 ibuprofen 600 mg tablet 600 mg PO TID PRNQty: 90 RF: 3 oxycodone 5 mg tablet 5 - 10 mg PO Q4H Qty: 20 RF: 0 Continued lisinopril 5 mg tablet 5 mg PO DAILY Qty: 30 RF: 1 famotidine 20 mg tablet 20 mg PO BID Qty: 180 RF: 3 Aspirin/Acetaminophen/Caffeine [Excedrin Extra Strength Caplet] 1 EACH tablet 1 ea PO PRN PRNRF: 0 nortriptyline 25 mg capsule 25 mg PO QHS PRN (Reason: migraine headache) Qty: 90 RF: 1 Discontinued acetaminophen [Tylenol] 325 mg Tablet 1,000 mg PO PRN PRNRF: 0 ibuprofen 600 mg Tablet 600 mg PO PRN PRNRF: 0 Discharge Instructions Additional Instructions: Dr. George?s Total Knee Discharge Instructions Activity: The most important activity is to walk. You should try to take short walks a few times a day. It is important that when resting you work on keeping the knee straight. Avoid putting a pillow behind the knee as this will encourage flexion. Work on range of motion exercises as provided by Physical Therapy. - Start outpatient physical therapy within 2 weeks. - You should wear the PERI hose on both legs for 2 weeks. Dressing: Keep the surgical dressing in place for at least one week. After the first week it may be removed and replace with light gauze and tape or nothing. It may get wet after 3 days but avoid soaking the dressing. If it gets wet, just lightly pat dry. Medications: - You should take Tylenol and anti-inflammatory Ibuprofen as your primary pain control medications - You have been prescribed a stronger pain medication Oxycodone for breakthrough pain, take as needed as prescribed. - You should continue your stomach acid reduction agent Famotidine to help reduce stomach acid and reflux. - You will be taking Aspirin 81mg twice a day for DVT prevention unless instructed otherwise. - You have Gabapentin to take at night for sleep and nerve pain. - Use Benadryl 25mg every 6 hours as needed for itching. - If you have constipation you should take Colace or Miralax (both [id number]). It takes most people 3-4 days to have a bowel movement. Follow-up: 2 weeks Referrals: Mir George MD [ [facility] STAFF PHYSICIAN] - Activity:: Activity as Tolerated Equipment/Supplies:: Walker Diet:: As Tolerated Discharge Orders Discharge Orders: Discharge Order (Routine); Ordered 05/29/19 Ordered By: Mir George DS: Summary Status at Discharge Functional status at discharge: uses cane/walker Overall status at discharge: patient is progressing back to baseline Mental Status: mental status grossly normal Speech and Movement: speech and movement normal Mood: congruent mood Affect: normal affect Exam Psych Mental Status: mental status grossly normal Speech and Movement: speech and movement normal Mood: congruent mood Affect: normal affect DS: Data Vitals/I&O Vitals and I&O: Vital Signs Temperature 36.7 C 05/29/19 03:37 Temperature Source Tympanic 05/29/19 03:37 Pulse 105 H 05/29/19 03:37 Pulse Rhythm Regular 05/28/19 23:44 Respiratory Rate 19 05/29/19 03:37 Respiratory Effort Non-Labored 05/28/19 23:44 Respiratory Depth Normal 05/28/19 23:44 Respiratory Pattern Normal 05/28/19 23:44 Blood Pressure 119/73 05/29/19 03:37 Pulse Oximetry 96 05/29/19 03:37 Respiratory End-tidal CO2 36 05/28/19 15:30 Oxygen Delivery Method Room Air 05/29/19 03:37 Oxygen Flow Rate 0 05/29/19 03:37 Pain Level 3 05/29/19 07:55 Intake & Output 05/28/19 05/28/19 05/29/19 11:59 23:59 11:59 Intake Total 3617.333 / 3617.333 1779.333 / 1779.333 Output Total 5000 / 5000 2250 / 2250 Balance -1382.667 / -1382.667 -470.667 / -470.667 Weight 132.1 kg Intake: IV 1837.333 / 1837.333 629.333 / 629.333 Oral 1780 / 1780 1150 / 1150 Output: Urine 4700 / 4700 2250 / 2250 Estimated Blood Loss 300 / 300 Other: Urine Color Yellow Pale Yellow Urine Appearance Clear Clear Emesis Description None PFSH Medical History Chondromalacia patellae, right knee (Inactive) Chondromalacia, right knee (Inactive) Complete tear, knee, anterior cruciate ligament (Resolved 04/12/13) Repair 06-04-13 Elevated blood pressure reading (Inactive 06/04/13) History of low back pain (Acute) Hx of migraines (Acute) Hypertension (Chronic) Dx'ed 05/2019, started on Lisinopril 5mg Internal derangement of right knee (Inactive 01/18/19) Lumbar disc herniation (Acute) Surgical History Excision, Distal Clavicle (08/01/17) INGA PROCEDURE RIGHT- Repair, ACL (06/04/13) R ACL reconstruction-bone patellar tendon autograft-Dr Whitaker 11/17/15 removal hardware right proximal tibia S/P Achilles tendon repair (Resolved 02/04/14) S/P tonsillectomy (Resolved ~11/17/10) Family History Father Essential hypertension Heart disease Hyperlipidemia Arthritis Other Alcohol abuse Social History Smoking/Tobacco Use Status: Former Tobacco Use Pack-years: 3 Alcohol Intake: current Alcohol Intake frequency: a few times a week Drug use: Never Substance use type: does not use Adopted: No Caregiver/Support person: No Foster care: No Household members: significant other and children Housing: house Number of Children: 1 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
--- NOTE | 2019-05-29 09:52 | PT.INTREAT ---
Date of service: 05/29/19 Time of Service: 09:52 PT Notes Visit Reasons: RIGHT KNEE DJD 05/29/2019 SUBJECTIVE: Eduardo reporting 4/10 discomfort. He receives pain medication about 20 minutes ago. He states that he will be utilizing crutches in his home as the walker will not fit. OBJECTIVE: Pt is lying in bed. He is agreeable to PT treatment. TRANSFERS Supine to sit: S Sit to stand: S Stand to sit: S GAIT Device: Bilateral axillary crutches Weight bearing: WBAT R Assist: SBA Distance: 150'x2 STAIRS: 3-4, 2-6, bilateral rails, step to pattern, SBA THEREX: Pt performs SLR, quad sets, glut sets, ankle pumps and knee flexion ROM. Review for home completion. See flow sheet for details. ASSESSMENT: Tolerates use of bilaterally axillary crutches well without LOB or path deviations. I do encourage him to put as much weight through the right LE during gait as he can tolerate. Pt will utilize his crutches until he feels safe to transition to a cane or single crutch. No difficulty with stairs today. PLAN: Pt to be discharged home. No equipment required as he has crutches at home. See discharge summary. Direct time: 25 minutes [id number], [id number] Lillie Delagdo PTA
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
--- NOTE | 2019-05-29 15:47 | PDOC.CMDIS ---
- If Service Date Differs Date of service: 05/29/19 Time of Service: 15:47 LACE Index Scoring Tool - Questions: Length of Stay (in days): 2 Acuity (Admit via E.D.?): No E.D. Visits: 1 - Answers: Total Score: 3 Risk of Readmission: Low Risk Care Management Discharge Reason for Hospitalization: R Knee replacement Discharge Plan: Eduardo will return home with no additional services at this time. He will be driven home via private vehicle by his mother. He will follow up with Ortho, as recommended. He is agreeable to the plan. Patient/Family Education Needs: Review discharge instructions regarding activity levels and medications, discussion of self care needs including ask me three
--- NOTE | 2019-05-30 16:30 | INDS_ITS ---
Date of service: 05/30/19 Time of Service: 16:30 PT Notes Visit Reasons: RIGHT KNEE DJD Inpatient Physical Therapy Discharge Summary Dates: 05/30/2019 Dates of Service: 05/28/2019 through 05/29/2019 This is a clinical summary of care provided on the duration of dates listed above. No charge was made in the completion of this documentation. Referring Doctor: Mir George MD PT Orders: PT CONSULT: Status post Ortho surgery Precautions: Fall. Standard. WBAT on right LE Patient Profile/Admitting Diagnosis: Patient is a 38-year-old male with severe posttraumatic tricompartmental osteoarthritis of the right knee status post right total knee arthroplasty on postoperative day 1 on the day of discharge. PMHX: Medical History Chondromalacia patellae, right knee (Inactive) Chondromalacia, right knee (Inactive) Complete tear, knee, anterior cruciate ligament (Resolved 04/12/13) Repair 06-04-13 History of low back pain (Acute) Hx of migraines (Acute) Internal derangement of right knee (Inactive 01/18/19) Lumbar disc herniation (Acute) Surgical History Excision, Distal Clavicle (08/01/17) INGA PROCEDURE RIGHT- H/O Achilles tendon repair (Resolved) H/O surgical procedure (Resolved) a. Tonsillectomy 11/2010 b. Right ACL repair 05/2013 c. Right Achilles tendon repair 02/04/2014 Repair, ACL (06/04/13) R ACL reconstruction-bone patellar tendon autograft-Dr Whitaker 11/17/15 removal hardware right proximal tibia S/P Achilles tendon repair (Resolved 02/04/14) S/P tonsillectomy (Resolved ~11/17/10) Social History/Home Situation: Patient lives with his mother and in a private home with 3 steps to enter, rails on both sides. 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 Independent with all aspects of ADLs prior to surgery. Equipment Owned/DME: Bilateral axillary crutches Subjective: NT Objective: General Observation: NT Mental Status:NT Pain:NT ROM: Right Upper Extremity: Shoulder Flexion WFL. Shoulder abduction WFL. Elbow flexion WFL. Wrist flexion WFL. Opening and closing of hand WFL. Left Upper Extremity: Shoulder Flexion WFL. Shoulder abduction WFL. Elbow flex ion WFL. Wrist flexion WFL. Opening and closing of hand WFL. Right Lower Extremity: Hip flexion WFL. Hip abduction WFL. Knee flexion -5 to 115 degrees. Knee extension -5 degrees. Ankle dorsiflexion WFL. Ankle plantarflexion WFL. Left Lower Extremity: Hip flexion WFL. Hip abduction WFL. Knee flexion WFL. Ankle dorsiflexion WFL. Ankle plantarflexion WFL. Strength: Right Upper Extremity: Shoulder flexors 5/5. Shoulder abductors 5/5. Elbow flexors 5/5. Elbow extensors 5/5. [place] strong. Left Upper Extremity: Shoulder flexors 5/5. Shoulder abductors 5/5. Elbow flexors 5/5. Elbow extensors 5/5. [place] strong. Right Lower Extremity: Hip flexors 5/5. Hip abductors 5/5. Knee flexors 3-/5. Knee extensors 3-/5. Ankle dorsiflexors 5/5. Ankle plantarflexors 5/5. Left Lower Extremity:Hip flexors 5/5. Hip abductors 5/5. Knee flexors 5/5. Knee extensors 5/5. Ankle dorsiflexors 5/5. Ankle plantarflexors 5/5. Sensation: Patient reports numbness on bilateral lower extremities but is aware of their position in space Bed Mobility/Transfers: Rolling supervision Supine to sit supervision Sit to supine supervision Sit to stand supervision Stand to sit supervision Bed to chair supervision Chair to bed supervision Gait: Patient tolerated level surface ambulation of 150 feet x 2 with SBA and WBAT on the right LE using a front wheeled walker with a reciprocal step through gait pattern. Balance: Static Sitting: Normal Dynamic Sitting: Normal Static Standing: Fair Dynamic Standing: Fair Assessment: Difficulty in walking, weakness on right knee major muscle groups, impairment in mobility ADL performance, and unsteadiness resulting from postoperative status. Patient is a 38-year-old male with severe posttraumatic tricompartmental osteoarthritis of the right knee status post right total knee arthroplasty on postoperative day 1 on the day of discharge. Patient presented with clinical signs and symptoms consistent with current/admitting diagnoses that have resulted to mobility limitations, gait instability, generalized weakness, and impairment of motor control as demonstrated by the following impairment level findings: 1. Decreased strength to R knee major muscle groups 2. Impaired standing balance 3. Impaired activity tolerance 4. Limitation of joint range of motion in right knee Impairments continue to contribute to the following functional limitations: 1. Inability to safely ambulate without assistive device and physical assistance 2. Increase completion time for mobility ADL performance 3. Increased fall risk 4. Inability to negotiate steps alone safely 5. Inability to return to vocational activities Goals: Goals X1 week 1. Supine-Sit independent NOT MET 2. Sit-Supine independent NOT MET 3. Sit-Stand independent NOT MET 4. Stand-Sit independent NOT MET 5. Bed-Chair independent NOT MET 6. Chair-Bed independent NOT MET 7. Independent gait on level surface with use of bilateral crutches for at least 300 feet without report of pain nor dyspnea NOT MET 8. Independent stair negotiation while holding onto bilateral rails for at least 5 steps without report of pain nor dyspnea NOT MET 9. Independent with home exercise program NOT MET 10. Good static and dynamic standing balance/tolerance NOT MET DISCHARGE RECOMMENDATIONS: May benefit from skilled physical therapy services according to orthopedic surgeon's timeline recommendations. Patient will be educated and trained on home exercise program per [facility] exercise protocol in preparation for outpatient physical therapy services. TREATMENT CODE/TIME: TX Thank you very much for this referral. Chandrika Lujan PT, DPT, CLT [facility] [place], [place]
== END 2019-05-29 11:33 | disposition home or self-care (01) ==
LOC: MS 17:20 → PDS 17:20
PROVIDERS: Admitting Provider Student in an Organized Health Care Education/Training Program; PCP Internal Medicine; Visit Provider Student in an Organized Health Care Education/Training Program
PROC: 0SRC0J9 Replacement of Right Knee Joint with Synthetic Substitute, Cemented, Open Approach (ICD-10-PCS; CPT 27447; principal; 2019-05-28 12:30)
DX: M17.31 Unilateral post-traumatic osteoarthritis, right knee (principal); M25.561 Pain in right knee; Z96.651 Presence of right artificial knee joint; G89.18 Other acute postprocedural pain; I10 Essential (primary) hypertension; V09.9XXS Pedestrian injured in unspecified transport accident, sequela
CPT/HCPCS: 27447; 20985; C1776; 76942; 97110; 97162; 97530; NC; G0378; J0690; J1100; J1885; J2001; J2250; J2704

== ENCOUNTER 2019-06-12 11:37 | Outpatient (CLI) | payer BC, SELFPAY ==
--- NOTE | 2019-06-12 09:30 | DI.RAD_ITS ---
EXAM: XR STANDING ALIGNMENT and rt knee 1 v CLINICAL HISTORY: 1st post op. TECHNIQUE: 2D digital imaging was performed. COMPARISON: XR KNEE RT 4V AP,LAT,ADIN,PAT from 01/18/2019 XR KNEES MERCHANT ONLY from 01/28/2019 XR STANDING ALIGNMENT from 05/22/2019 XR KNEE RT 1V from 06/12/2019 FINDINGS: Since the prior examination, the patient has had a right total knee replacement. The orthopedic hard guaman appears in good position. The osseous fragments inferior to the patella appear stable. The lef t knee is well maintained. The right lower extremity measures 98.3 cm. The left lower extremity jaydon sures 98.9 cm. IMPRESSION: Status post right total knee replacement. DATA REPOSITORY: RADIATION DOSE DELIVERED:
== END 2019-06-12 11:57 ==
PROVIDERS: PCP Internal Medicine; Visit Provider Student in an Organized Health Care Education/Training Program
DX: Z96.651 Presence of right artificial knee joint (principal); Z47.1 Aftercare following joint replacement surgery
CPT/HCPCS: 73560; 77073

== ENCOUNTER 2019-10-14 13:25 | Outpatient (CLI) | payer BC, SELFPAY ==
[2019-10-16 23:08] LABS: SARS-CoV-2 RNA Undetected (Undetected); SARS-CoV-2 Specimen Source Nasopharynx
== END 2019-10-14 13:45 ==
PROVIDERS: PCP Internal Medicine; Visit Provider Internal Medicine
DX: Z11.59 Encounter for screening for other viral diseases (principal)
CPT/HCPCS: U0003

== ENCOUNTER 2020-05-31 09:11 | Outpatient (CLI) | payer SELFPAY ==
--- NOTE | 2020-05-31 08:00 | DI.RAD_ITS ---
EXAM: XR KNEE RT 2V AP,LAT CLINICAL HISTORY: annual f/u [facility]. TECHNIQUE: 2D digital imaging was performed. COMPARISON: CR,XR XR KNEE RT 4V AP,LAT,ADIN,PAT from 01/18/2019 MR MR LOWER JOINT RT WO from 01/27/2019 MR MR LOWER JOINT RT WO from 01/27/2019 CR XR KNEE RT 1V from 06/12/2019 CR XR STANDING ALIGNMENT from 06/12/2019 CR XR STANDING ALIGNMENT from 06/12/2019 FINDINGS: Position of the components of the prosthesis remain stable with no fracture or loosening. No radiogr aphic evidence of osteomyelitis. Densities in the lateral soft tissues of the lower thigh are unchan ged from 06/12/2019. Also corticated calcification within the upper patellar ligament is also again noted, unchanged from at least January 2019. Other fainter calcifications are again seen inferiorly in the patellar ligament. IMPRESSION: DATA REPOSITORY: RADIATION DOSE DELIVERED:
== END 2020-05-31 09:12 | disposition home or self-care (01) ==
LOC: DIORS 09:11
PROVIDERS: PCP Internal Medicine; Referring Provider Internal Medicine; Visit Provider Student in an Organized Health Care Education/Training Program
DX: Z96.651 Presence of right artificial knee joint (principal)
CPT/HCPCS: 73560

== ENCOUNTER 2022-03-20 16:25 | Emergency (ER) | payer BC, SELFPAY ==
[2022-03-20 16:29] VITALS: BP 172/92; PULSE 122; RESP 17; TEMP 38.2; O2SAT 97
--- NOTE | 2022-03-20 16:30 | DI.CT_ITS ---
Exam(s) CT RENAL COLIC WO EXAM: CT RENAL COLIC WO CLINICAL HISTORY: left flank pain. TECHNIQUE: Imaging Protocol: Axial computed tomography images with coronal and sagittal reformatted images were created and reviewed CONTRAST MATERIAL: Intravenous: none Oral: None COMPARISON: CT PELVIC/LOWER ABD WITHOUT CONT from 03/25/2012 FINDINGS: VISUALIZED LUNG BASES: Mild increased markings noted in the medial basal segment of the right lower l obe. There are no pleural effusions.. ABDOMEN: There is no ascites. LIVER: Liver slightly prominent size and there is fatty infiltration without evidence of an obvious h epatic mass on this noninfused study. GALLBLADDER/BILIARY: No obvious gallbladder pathology. CBD is not dilated. PANCREAS: No evidence of pancreatic mass nor dilatation of the pancreatic duct. SPLEEN: Spleen size is upper normal. No obvious intrasplenic masses. ADRENALS: There are no significant adrenal masses. KIDNEYS:No cysts evident. No solid renal masses. No calculi nor hydronephrosis. . ABDOMINAL AORTA: Abdominal aorta is not enlarged. LYMPH NODES: There is no retroperitoneal nor paraaortic adenopathy. ABDOMINAL WALL: No evidence of significant anterior abdominal wall nor inguinal hernia. GI: There is no evidence of bowel obstruction, free air, nor abscess. PELVIS: LYMPH NODES: There is no intrapelvic nor inguinal adenopathy. GI: No evidence of appendicitis.No evidence of sigmoid diverticulitis.There is no obvious colitis pat tern. URINARY BLADDER: No calculi nor obvious masses evident REPRODUCTIVE: Prostate not enlarged. Seminal vesicles unremarkable. OSSEOUS: No significant osseous lesions. No fractures. Chronic degenerative disc disease at L4-5 le adilia evident. Sacroiliac joints appear un remarkable. IMPRESSION: 1. No evidence of urinary tract calculi nor hydronephrosis. 2. Hepatic steatosis noted. No obvious intrahepatic lesions evident on this study. 3. No ascites. Mild increased markings in the right lung base. No pleural effusions. RADIATION DOSE DELIVERED: 1,701.1mGy.cm Total DLP DATA REPOSITORY: All CT scans at this facility are submitted to the National Radiology Data Registry (NRDR) Dose Index Registry (DIR) with the [employer] (A[employer]). RADIATION OPTIMIZATION: All CT scans at this facility use at least one of these dose optimization te chniques: automated exposure control; mA and/or kV adjustment per patient size (includes targeted exa ms where dose is matched to clinical indication); or iterative reconstruction.
--- NOTE | 2022-03-20 16:44 | W.ED.GENAD ---
Discharge Plan Disposition Patient Disposition: Home Condition: Stable Discharge Details Clinical Impression: Abdominal pain Primary Care Provider: Keysha Ortiz ED Provider: Sherry Tanner Home Meds and New Rx's Prescriptions: Continued acetaminophen 500 mg tablet 1,000 mg PO Q8H PRN (Reason: pain) Qty: 90 3RF ibuprofen 600 mg tablet 600 mg PO TID PRNQty: 90 3RF Discharge Instructions Instructions: Abdominal Pain (ED) Additional Instructions: Your labs and imaging are reassuring here today. Please continue to encourage hydration. Tylenol and/or ibuprofen as needed for discomfort. Please follow-up with primary care in 1 week for reevaluation. If you develop increased pain, inability stay hydrated, or other new/symptom please seek care urgently once again. Referrals: Keysha Ortiz MD [Primary Care Provider] - Medical Decision Making Patient is a pleasant 41-year-old male presenting with chief complaint of left-sided flank pain. He states that it began about 2 and half hours prior to arrival. Has not had pain like this historically. States the pain came on suddenly and sharp. States that it waxes and wanes but can be stabbing and sharp at its maximum. States that this can radiate more towards the abdomen. Had a normal bowel movement this morning with no melena or hematochezia. No change in urinary habits, denies any hematuria. Denies any testicular pain. Has some mild nausea but no vomiting. No previous abdominal surgeries. Small amount of alcohol. On exam, patient appears anxious and uncomfortable. He is tachycardic. His initial temp was elevated but I believe this is associated with him having a hat on and this being checked temporally. Orally, he is afebrile. Lungs are clear, normal cardiac exam. No CVA tenderness with percussion. He does have pain elicited on the left side of the abdomen fairly far laterally. No rash. No pain over McBurney's point. No significant pain in the left upper quadrant or left lower quadrant. No peritoneal findings. His description of the pain and presentation has been primarily concern for potential nephrolithiasis. Also considered pancreatitis, colitis, diverticulitis, muscle strain versus other. Labs reassuring. No leukocytosis. Stable H&H. CMP without significant abnormality. Lipase within normal limits. Urinalysis without evidence of hematuria or infection. FINDINGS: Mediastinal space: Small esophageal hiatal hernia. Liver: Diffuse fatty infiltration of the liver. Gallbladder and bile ducts: Normal. No calcified stones. No ductal dilation. Pancreas: Normal. No ductal dilation. Spleen: Normal. No splenomegaly. Adrenal glands: Normal. No mass. Kidneys and ureters: Normal. No hydronephrosis. Stomach and bowel: Unremarkable. No obstruction. No mucosal thickening. Appendix: No evidence of appendicitis. Intraperitoneal space: Unremarkable. No free air. No significant fluid collection. Vasculature: Unremarkable. No abdominal aortic aneurysm. Lymph nodes: Unremarkable. No enlarged lymph nodes. Urinary bladder: Unremarkable as visualized. Reproductive: Unremarkable as visualized. Bones/joints: Degenerative arthritis in the spine and pelvis. Soft tissues: Unremarkable. IMPRESSION: No acute findings Discussed these findings with the patient. He was flu and COVID-negative. After Toradol and Zofran, his pain is largely resolved. Feeling significantly improved. Discussed care. He was initially quite tachycardic but this is downtrending, he feels that this is likely associated with dehydration. Encourage hydration. Discussed supportive care. Return precautions were discussed. Advise follow-up with primary care. All his questions and concerns were addressed and he is agreement this plan. HPI General Date/Time Provider Initiated Documentation: 03/20/22 16:25. Related Data Home Medications Medication Instructions Recorded Confirmed acetaminophen 500 mg tablet 1,000 mg PO Q8H PRN pain #90 tabs 05/29/19 03/20/22 ibuprofen 600 mg tablet 600 mg PO TID PRN #90 tabs 05/29/19 03/20/22 Previous Rx's Medication Instructions Recorded acetaminophen 500 mg tablet 1,000 mg PO Q8H PRN pain #90 tabs 05/29/19 ibuprofen 600 mg tablet 600 mg PO TID PRN #90 tabs 05/29/19 Allergies Allergy/AdvReac Type Severity Reaction Status Date / Time sulfamethoxazole Allergy Mild Itching Verified 03/20/22 16:34 [From Bactrim] trimethoprim [From Bactrim] Allergy Mild Itching Verified 03/20/22 16:34 amoxicillin [Amoxicillin] Allergy Unknown Hives Verified 03/20/22 16:34 amoxicillin trihydrate Allergy Unknown Hives Verified 03/20/22 16:34 [From Augmentin] General Stated Complaint: Abd Prob RANJIT: 3 PFSH All Active Problems (Updated 03/20/22 @ 19:03 by ADA Robin) Abdominal pain (Acute) Anxiety (Chronic) History of total knee arthroplasty (Acute 05/28/19) GERD (gastroesophageal reflux disease) (Chronic) Back pain (Chronic) Family history of alcoholism (Chronic 06/04/13) Obesity (Chronic 06/04/13) Sleep apnea (Chronic 01/21/14) declines CPAP/BiPAP Family history of diabetes mellitus in father (Chronic) Migraine (Chronic) Coccydynia (Acute) Femoral acetabular impingement (Acute) Hypertension (Chronic) Dx'ed 05/2019, started on Lisinopril 5mg Medical History (Updated 03/20/22 @ 19:03 by ADA Robin) Chondromalacia patellae, right knee Chondromalacia, right knee Complete tear, knee, anterior cruciate ligament (04/12/13) Repair 06-04-13 Elevated blood pressure reading (06/04/13) History of low back pain Hx of migraines Internal derangement of right knee (01/18/19) Lumbar disc herniation Surgical History (Updated 09/01/19 @ 08:31 by Magdalena Davis) Excision, Distal Clavicle (08/01/17) INGA PROCEDURE RIGHT- Repair, ACL (06/04/13) R ACL reconstruction-bone patellar tendon autograft-Dr Whitaker 11/17/15 removal hardware right proximal tibia S/P Achilles tendon repair (02/04/14) S/P tonsillectomy (~11/17/10) Family History Father Essential hypertension Heart disease Hyperlipidemia Arthritis Other Alcohol abuse Social History (Updated 09/13/21 @ 13:38 by Malini Dang LPN) Smoking/Tobacco Use Status: Current-Occasional Tobacco Type: cigarettes Smoking risk assessment performed?: Yes Alcohol Intake: current Alcohol Intake frequency: a few times a week Drug use: Never Substance use type: does not use Adopted: No Caregiver/Support person: No Foster care: No Household members: children Housing: house Number of Children: 1 Communication Needs: None Education Level: high school Do you need help understanding health information?: Never 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 Working smoke detector in home: Yes Fire extinguisher in home: Yes Carbon monox detector in home: Yes Do you feel safe at home: Yes Course Vital Signs Vital signs: Vital Signs Temperature 38.2 C H 03/20/22 16:29 Pulse 122 H 03/20/22 16:29 Respiratory Rate 17 03/20/22 16:29 Blood Pressure 172/92 H 03/20/22 16:29 Pulse Oximetry 97 03/20/22 16:29 Temperature 38.2 C H 03/20/22 16:29 Temperature Source Temporal Artery Scan 03/20/22 16:29 Pulse 122 H 03/20/22 16:29 Respiratory Rate 17 03/20/22 16:29 Respiratory Effort Non-Labored 03/20/22 16:31 Blood Pressure 172/92 H 03/20/22 16:29 Pulse Oximetry 97 03/20/22 16:29 Oxygen Delivery Method Room Air 03/20/22 16:29 Oxygen Flow Rate 0 03/20/22 16:29 Pain Level 3 03/20/22 16:31 PAWSS Have you Been Recently Intoxicated or Drunk Within the Last 30 days?: No Have you Ever Experienced Previous Episodes of Alcohol Withdrawal?: No Have you ever Experienced Withdrawal Seizures?: No Have you ever Experienced Delirium Tremens(DT)s?: No Have you ever undergone Alcohol Rehabilitation Treatment (i.e, inpt ot outpatient treatment programs)?: No Have you ever Experienced Blackouts?: No Have you ever Combined Alcohol with other Downers within the last 90 days?: No Have you ever Combined Alcohol with any other Substance of Abuse during the last 90 days?: No Result: 0
[2022-03-20 17:07] LABS: Abs Immature Grans 0.07 10^3/uL (0.0-0.06); Absolute Basophil Count 0.07 10^3/uL (0.0-0.2); Absolute Eosinophil Count 0.11 10^3/uL (0.0-0.7); Absolute Lymphocyte Count 0.68 10^3/uL (1.2-3.4); Absolute Monocyte Count 0.77 10^3/uL (0.1-0.8); Absolute Neutrophil Count 7.91 10^3/uL (1.2-6.7); Basophils % 0.7; Eosinophils % 1.1; HCT 47.8 % (40.0-50.0); HGB 16.1 g/dL (13.5-17.5); Immature Grans % 0.7; Lymphocytes % 7.1; MCH 30.4 pg (27.0-33.0); MCHC 33.7 % (32.0-36.0); MCV 90 fL (80-95); MPV 11.2 fL (8.0-11.0); Neutrophils % 82.4; Platelet Count 227 10^3/uL (130-400); RDW 12.7 % (11.8-14.1); RDW-SD 41.7 fL; WBC 9.61 10^3/uL (4.4-10.8)
[2022-03-20] MEDS: Ketorolac 30 MG/ML VIAL IVP (17:16)
[2022-03-20] MEDS: Ondansetron 4 MG/2 ML VIAL IVP (17:17)
[2022-03-20] MEDS: Lactated Ringers 1,000 ML 1000 ML IV (17:18)
[2022-03-20 17:22] LABS: Lipase 116 U/L (73-393); Magnesium 1.7 mg/dL (1.8-2.4)
--- NOTE | 2022-03-20 17:23 | DI.VRAD_ITS ---
PROCEDURE INFORMATION: Exam: CT Abdomen And Pelvis Without Contrast Exam date and time: 03/20/2022 5:05 PM Age: 41 years old Clinical indication: Abdominal pain; Patient HX: Left flank pain TECHNIQUE: Imaging protocol: Computed tomography of the abdomen and pelvis without contrast. COMPARISON: CR XR HIP LT COMPLETE AP PELVIS 12/31/2018 11:31 AM FINDINGS: Mediastinal space: Small esophageal hiatal hernia. Liver: Diffuse fatty infiltration of the liver. Gallbladder and bile ducts: Normal. No calcified stones. No ductal dilation. Pancreas: Normal. No ductal dilation. Spleen: Normal. No splenomegaly. Adrenal glands: Normal. No mass. Kidneys and ureters: Normal. No hydronephrosis. Stomach and bowel: Unremarkable. No obstruction. No mucosal thickening. Appendix: No evidence of appendicitis. Intraperitoneal space: Unremarkable. No free air. No significant fluid collection. Vasculature: Unremarkable. No abdominal aortic aneurysm. Lymph nodes: Unremarkable. No enlarged lymph nodes. Urinary bladder: Unremarkable as visualized. Reproductive: Unremarkable as visualized. Bones/joints: Degenerative arthritis in the spine and pelvis. Soft tissues: Unremarkable. IMPRESSION: No acute findings Dictated and Authenticated by: Eliza Cox MD. Ordering:DMITRIY Powell MD
[2022-03-20 17:31] LABS: ALT 48 U/L (16-63); AST 24 U/L (15-37); Albumin 4.6 g/dL (3.4-5.0); Alkaline Phosphatase 107 U/L (46-116); Anion Gap 10.1 mmol/L (3-11); BUN 15 mg/dL (7-18); Bilirubin, Total 0.7 mg/dL (0.2-1.0); CO2 25.9 mmol/L (21.0-32.0); CREATININE 1.3 mg/dL (0.70-1.30); Calcium 9.4 mg/dL (8.5-10.1); Chloride 102 mmol/L (98-107); Estimated GFR 71.67 (mL/min/1.73m2); Glucose 113 mg/dL (74-106); Sodium 138 mmol/L (136-145); Total Protein 8.9 g/dL (6.4-8.2)
[2022-03-20 18:29] VITALS: BP 160/88; PULSE 112; RESP 16; TEMP 36.8; O2SAT 96
[2022-03-20 18:47] LABS: Bilirubin Negative (Negative); Blood Negative (Negative); Clarity Clear (Clear); Glucose Negative (Negative); Ketones Negative (Negative); Leukocyte Esterase Negative (Negative); Nitrite Negative (Negative); Urobilinogen 0.2 EU/dL (Up TO 0.2); pH 6.5 (5-8)
[2022-03-20 19:12] VITALS: BP 136/77; PULSE 99; RESP 16; TEMP 37.2; O2SAT 99
== END 2022-03-20 19:14 | disposition home or self-care (01) ==
PROVIDERS: Emergency Provider Physician Assistant; PCP Internal Medicine
DX: R10.9 Unspecified abdominal pain (principal); R00.0 Tachycardia, unspecified; R11.0 Nausea
CPT/HCPCS: 80053; 83690; 96361; 96374; 96375; 99284; 74176; 81003; 83735; 85025; J1885; J2405

== ENCOUNTER 2022-03-27 16:16 | Outpatient (CLI) | payer BC, SELFPAY ==
--- NOTE | 2022-03-27 15:30 | DI.RAD_ITS ---
Exam(s) XR RIBS LT W PA LAT CHEST CLINICAL HISTORY r/o L rib fx 10-11-12; r/o acute lung process R91.8 R07.81 PLEURODYNIA. COMPARISON: CR CHEST 2 VIEWS PA,LAT from 05/05/2015 TECHNIQUE:: PA and lateral views of the chest and four views of the left ribs were performed. FINDINGS: LUNGS: Clear. No pleural abnormality seen. HEART: Normal. MEDIASTINUM: Normal. BONES: No displaced rib fracture is seen. No compression fractures are seen in the thoracic spine. Degenerative disc changes present. No bony destructive lesion is seen. OTHER FINDINGS: None. IMPRESSION: 1. Unremarkable radiographic appearance of the left ribs. 2. No acute pulmonary findings.
== END 2022-03-27 16:36 ==
LOC: DI 16:17
PROVIDERS: PCP Internal Medicine; Visit Provider Nurse Practitioner Adult Health
DX: R07.81 Pleurodynia (principal); R91.8 Other nonspecific abnormal finding of lung field
CPT/HCPCS: 71046; 71100

== ENCOUNTER 2022-07-24 20:58 | Emergency (ER) | payer BC, SELFPAY ==
[2022-07-24] VITALS (33 sets, daily range): BP systolic 122–156; BP diastolic 71–109; PULSE 76–105; RESP 9–34; TEMP 36.9; O2SAT 93–100
--- NOTE | 2022-07-24 20:45 | RT.EKG_ITS ---
APPROVED REPORT Exam: Resting ECG Reason for Exam: difficulty breathing Patient Location: E HR:96 bpm ECG Measurements Heart Rate 96 AXIS [place] 168 P 55 QRSd 100 QRS 10 QT 346 T 15 QTc 439 Conclusion Sinus rhythm...normal P axis, V-rate 60- 99 sinus rhythm, normal axis, normal intervals, non ischemic
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
[2022-07-24 21:16] LABS: BE (Venous) -2 mmol/L (-2-3); HCO3 (Venous) 23 mmol/L (23-28); O2 Sat (Venous) 93 %; TCO2 (Venous) 21 mmol/L (24-29); pCO2 (Venous) 39 mmHg (41-51); pH (Venous) 7.39 (7.31-7.41); pO2 (Venous) 61 mmHg
[2022-07-24 21:17] LABS: Abs Immature Grans 0.06 10^3/uL (0.0-0.06); Absolute Basophil Count 0.08 10^3/uL (0.0-0.2); Absolute Eosinophil Count 0.34 10^3/uL (0.0-0.7); Absolute Lymphocyte Count 3.54 10^3/uL (1.2-3.4); Absolute Monocyte Count 0.69 10^3/uL (0.1-0.8); Basophils % 0.7; HCT 39.4 % (40.0-50.0); HGB 13.6 g/dL (13.5-17.5); Immature Grans % 0.5; Lymphocytes % 31.6; MCH 31.1 pg (27.0-33.0); MCHC 34.5 % (32.0-36.0); MCV 90 fL (80-95); MPV 11.1 fL (8.0-11.0); Monocytes % 6.2; Platelet Count 266 10^3/uL (130-400); RBC 4.37 10^6/uL (4.36-5.78); RDW 13.2 % (11.8-14.1)
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
[2022-07-24 21:19] LABS: Carboxyhemoglobin 3.8 %
[2022-07-24] MEDS: Normal Saline 1,000 ML 1000 ML IV (21:19)
[2022-07-24 21:22] LABS: Lactate 2.4 mmol/L (0.6-1.4)
[2022-07-24] MEDS: Dexamethasone 10 MG/ML VIAL IVP (21:23)
[2022-07-24] MEDS: Albuterol/Ipratropium 3 ML UPD VIAL UPD (21:33)
[2022-07-24 21:38] LABS: ALT 43 U/L (16-63); AST 35 U/L (15-37); Albumin 3.7 g/dL (3.4-5.0); Alkaline Phosphatase 92 U/L (46-116); Anion Gap 10.8 mmol/L (3-11); BUN 15 mg/dL (7-18); Bilirubin, Total 0.4 mg/dL (0.2-1.0); CO2 24.2 mmol/L (21.0-32.0); CREATININE 1.3 mg/dL (0.70-1.30); Calcium 8.9 mg/dL (8.5-10.1); Chloride 105 mmol/L (98-107); Estimated GFR 71.67 (mL/min/1.73m2); Glucose 108 mg/dL (74-106); Potassium 3.5 mmol/L (3.5-5.1); Sodium 140 mmol/L (136-145); Total Protein 7.1 g/dL (6.4-8.2)
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
[2022-07-25] VITALS: PULSE 82; RESP 14; O2SAT 95
[2022-07-25 00:01] VITALS: BP 130/84; PULSE 86; PULSE 90; RESP 18; O2SAT 94
[2022-07-25] MEDS: Albuterol HFA 8 GM 60 PUFF INH IH (00:03)
[2022-07-25 00:21] VITALS: BP 130/84; PULSE 86; RESP 18; TEMP 36.9; O2SAT 94
--- NOTE | 2022-07-27 08:45 | NUR.NOTE ---
Nursing Note: Accessed patient chart to determine how many EKG orders were in the chart from the ED. There was an outstanding EKG in ordered status. There are no EKG's in the [facility] system that are outstanding. EKG order was deleted.
== END 2022-07-25 00:08 | disposition home or self-care (01) ==
PROVIDERS: Emergency Medicine; Emergency Provider Physician Assistant; PCP Nurse Practitioner Adult Health
DX: R06.02 Shortness of breath; X08.8XXA Exposure to other specified smoke, fire and flames, initial encounter
CPT/HCPCS: 36415; 80053; 82375; 82805; 93005; 96361; 96374; 99284; 71045; 83605; 85025; 93010; J1100; J7620

== ENCOUNTER 2022-12-18 13:56 | Outpatient (CLI) | payer BC, SELFPAY ==
--- NOTE | 2022-12-18 13:15 | DI.RAD_ITS ---
Exam(s) XR KNEE LT 3V AP,LAT,ADIN EXAM: XR KNEE LT 3V AP,LAT,ADIN CLINICAL HISTORY: left knee pain. TECHNIQUE: 2D digital imaging was performed. COMPARISON: CR XR KNEE RT 2V AP,LAT from 05/31/2020 FINDINGS: 3 views No evidence fractureh nor left knee joint effusion. No joint space narrowing. Bone density normal. No osseous lesions. IMPRESSION: No significant osseous findings in the left knee. No joint space narrowing. DATA REPOSITORY: RADIATION DOSE DELIVERED:
== END 2022-12-18 13:57 | disposition home or self-care (01) ==
LOC: DIORS 13:57
PROVIDERS: PCP Nurse Practitioner Adult Health; Visit Provider Student in an Organized Health Care Education/Training Program
DX: M25.562 Pain in left knee (principal)
CPT/HCPCS: 73562

== ENCOUNTER 2023-05-11 01:54 | Outpatient (CLI) | payer BC, SELFPAY ==
[2023-05-11 10:34] LABS: Anion Gap 10.7 mmol/L (3-11); BUN 17 mg/dL (7-18); CO2 25.3 mmol/L (21.0-32.0); CREATININE 1.1 mg/dL (0.70-1.30); Calcium 9.2 mg/dL (8.5-10.1); Chloride 105 mmol/L (98-107); Estimated GFR 87.03 (mL/min/1.73m2); Glucose 101 mg/dL (74-106); Potassium 4.2 mmol/L (3.5-5.1); Sodium 141 mmol/L (136-145)
== END 2023-05-11 01:55 | disposition home or self-care (01) ==
LOC: LBO 01:54
PROVIDERS: PCP Nurse Practitioner Adult Health; Referring Provider Nurse Practitioner Adult Health; Visit Provider Nurse Practitioner Adult Health
DX: I10 Essential (primary) hypertension (principal); Z83.3 Family history of diabetes mellitus
CPT/HCPCS: 36415; 80048

== ENCOUNTER → 2023-07-30 04:15 | Outpatient (CLI) | payer BC, SELFPAY ==
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
== END ==
PROVIDERS: PCP Nurse Practitioner Adult Health; Visit Provider Nurse Practitioner Adult Health
DX: M76.62 Achilles tendinitis, left leg (principal)
CPT/HCPCS: 73721

== ENCOUNTER 2024-07-16 08:13 | Outpatient (CLI) | payer BC, SELFPAY ==
--- NOTE | 2024-07-16 07:45 | DI.RAD_ITS ---
Exam(s) XR KNEE LT 3V AP,LAT,ADIN EXAM: XR KNEE LT 3V AP,LAT,AIDN CLINICAL HISTORY: LEFT KNEE PAIN. TECHNIQUE: 2D digital imaging was performed of the left knee. Four images were obtained. Merchant, AP and lateral views were obtained. COMPARISON: CR XR KNEE LT 3V AP,LAT,ADIN from 12/18/2022 FINDINGS: BONES: No acute fracture is present. No bony destructive lesion is seen. There is an enthesophyte at the superior patella. JOINTS: There is mild narrowing of the medial joint space. There is a small joint effusion. No loos e body. SOFT TISSUE: Normal. IMPRESSION: Mild narrowing of the medial joint space and small joint effusion. DATA REPOSITORY: RADIATION DOSE DELIVERED:
== END 2024-07-16 08:14 | disposition home or self-care (01) ==
LOC: DIORS 08:13
PROVIDERS: PCP Nurse Practitioner Adult Health; Visit Provider Student in an Organized Health Care Education/Training Program
DX: M25.562 Pain in left knee (principal)
CPT/HCPCS: 73562

== ENCOUNTER 2024-08-06 02:13 | Outpatient (CLI) | payer BC, SELFPAY ==
--- NOTE | 2024-08-06 07:30 | DI.MRI_ITS ---
Exam(s) MR LOWER JOINT LT WO EXAM: MR LOWER JOINT LT WO CLINICAL HISTORY: L KNEE PAIN,internal derangement lt knee,m23.92. TECHNIQUE: Multiplanar multisequence MRI was performed. COMPARISON: MR MR LOWER JOINT RT WO from 01/27/2019 CR XR KNEE LT 3V AP,LAT,ADIN from 07/16/2024 FINDINGS: BONES: There is no fracture or contusion pattern. Enthesophyte upper pole of the patella. Degenera tive cysts at the tibial spines. JOINTS: Moderate-sized joint effusion is present. Articular cartilage: Patellofemoral joint: Small focal defect at the lateral patellar facet near the apex. Medial femoral tibial joint: Some thinning and irregularity at the posterior aspect of the medial fe moral condyle. Lateral femoral tibial joint: Some thinning and irregularity at the posterior lateral femoral condyl e. LIGAMENTS/TENDONS: Anterior Cruciate: Unremarkable. Posterior Cruciate: Unremarkable. Medial Collateral:Surrounding fluid but no visible tear. Lateral Collateral ligament complex: Unremarkable. Extensor mechanism: Unremarkable. Medial retinaculum: Unremarkable. Lateral retinaculum: Unremarkable. Popliteus: Unremarkable. MENISCI: The medial meniscus is unremarkable. The lateral meniscus is unremarkable. MUSCLES: Unremarkable. SOFT TISSUES: Unremarkable. IMPRESSION: Moderate-sized joint effusion. Small focal defect at the lateral patellar facet. Chondromalacia at the medial and lateral aspects of the posterior femoral condyles. Fluid around the medial collateral ligament but no visible tear. No evidence of meniscal tear. DATA REPOSITORY:
== END 2024-08-06 02:33 ==
LOC: DI 02:13
PROVIDERS: PCP Nurse Practitioner Adult Health; Visit Provider Student in an Organized Health Care Education/Training Program
DX: M23.92 Unspecified internal derangement of left knee (principal); M94.262 Chondromalacia, left knee
CPT/HCPCS: 73721

== ENCOUNTER 2024-09-15 02:07 | Outpatient (CLI) | payer BC, SELFPAY ==
[2024-09-15 07:27] LABS: Hemoglobin A1C 4.9 % (<5.7)
[2024-09-15 08:16] LABS: BUN 13 mg/dL (7-18); CREATININE 0.9 mg/dL (0.70-1.30); Calcium 9.2 mg/dL (8.5-10.1); Calculated LDL 116 mg/dL (<100); Chloride 105 mmol/L (98-107); Cholesterol 205 mg/dL (<200); Estimated GFR 109.36 (mL/min/1.73m2); Glucose 91 mg/dL (74-106); HDL Cholesterol 30 mg/dL (>or=40); Potassium 4.2 mmol/L (3.5-5.1); Sodium 141 mmol/L (136-145); Triglyceride 295 mg/dL (<150)
== END 2024-09-15 02:08 | disposition home or self-care (01) ==
PROVIDERS: PCP Nurse Practitioner Adult Health; Referring Provider Nurse Practitioner Adult Health; Visit Provider Nurse Practitioner Adult Health
DX: Z00.00 Encounter for general adult medical examination without abnormal findings (principal); I10 Essential (primary) hypertension; E66.9 Obesity, unspecified
CPT/HCPCS: 36415; 80048; 80061; 83036

== ENCOUNTER 2024-10-03 09:15 | Outpatient (CLI) | payer BC, SELFPAY ==
--- NOTE | 2024-10-03 09:15 | DI.RAD_ITS ---
Exam(s) XR SCAPULA LT EXAM: XR SCAPULA LT CLINICAL HISTORY: bursitis? Pain of lt scapula M54.2 cervicalgia M54.6 tpsine pain. TECHNIQUE: 2D digital imaging was performed. Two images were obtained. COMPARISON: CR LEFT SHOULDER COMPLETE from 07/31/2010 CR,XR XR PORTABLE CHEST AP from 07/24/2022 FINDINGS: BONES: No acute fracture is present. No bony destructive lesion is seen. JOINTS: There is no dislocation. There are mild degenerative changes seen at the acromioclavicular joint. SOFT TISSUE: Normal. IMPRESSION: Mild degenerative changes of the acromioclavicular joint. DATA REPOSITORY: RADIATION DOSE DELIVERED:
--- NOTE | 2024-10-03 09:15 | DI.RAD_ITS ---
Exam(s) XR CERVICAL SPINE COMP 4-5V EXAM: XR CERVICAL SPINE COMP 4-5V CLINICAL HISTORY: possible C3-4-5 radicular pain M54.2 cervicalgia M54.6 tspine pain. TECHNIQUE: 2D digital imaging was performed. Six images were obtained. AP, odontoid, lateral and bilateral oblique images were obtained. COMPARISON: No exams were available for comparison FINDINGS: The odontoid is intact. The lateral masses are well aligned. There is straightening of the normal cervical lordosis. This may be due to muscle spasm or patient positioning. The disc heights are well maintained. There are osteophytes seen at multiple levels of the cervical spine particularly at C2-3, C5-6 through C7-T1. No acute fracture or subluxation is present. No significant neural foraminal stenosis is present. The cervical thoracic junction is well maintained. The prevertebral soft tissues are unremarkable. Lung apices are clear. IMPRESSION: Hodf-qs-[id number] cervical spondylosis. DATA REPOSITORY: RADIATION DOSE DELIVERED:
--- NOTE | 2024-10-03 09:15 | DI.RAD_ITS ---
Exam(s) XR THORACIC SPINE COMPLETE EXAM: XR THORACIC SPINE COMPLETE CLINICAL HISTORY: assess bony alignment--abn? tspine pain M54.6 M54.2 cervicalgia. TECHNIQUE: 2D digital imaging was performed of the thoracic spine. Three views were obtained. AP, swimmer's and lateral views were obtained. COMPARISON: CR,XR XR PORTABLE CHEST AP from 07/24/2022 CR XR CERVICAL SPINE COMP 4-5V from 10/03/2024 FINDINGS: BONES: There is no fracture or destructive lesion. There are osteophytes seen throughout the thoracic spine. DISKS:Alignment is within normal limits. Interverebral disc spaces are maintained. SOFT TISSUE: Visualized lungs are clear. IMPRESSION: Chronic degenerative changes seen in the thoracic spine. DATA REPOSITORY: RADIATION DOSE DELIVERED:
== END 2024-10-03 09:35 ==
LOC: DI 09:16
PROVIDERS: PCP Nurse Practitioner Adult Health; Visit Provider Nurse Practitioner Adult Health
DX: M89.8X1 Other specified disorders of bone, shoulder (principal); M43.02 Spondylolysis, cervical region
CPT/HCPCS: 72050; 72072; 73010

== ENCOUNTER 2024-10-24 08:47 | Day surgery (SDC) | payer BC, SELFPAY ==
[2024-10-24] VITALS (18 sets, daily range): BP systolic 93–156; BP diastolic 55–103; PULSE 57–76; RESP 7–19; TEMP 35.8–36.7; O2SAT 97–100; BMI 43.4
--- NOTE | 2024-10-24 07:13 | PDOC.DSDIS_ITS ---
Date of service: 10/24/24 Discharge Plan Disposition Patient Disposition: Home Condition: Stable Discharge Details Attending Provider: Sedrick Vera Primary Care Provider: Alisa Lopez Home Meds and New Rx's Prescriptions: New aspirin 325 mg tablet 325 mg PO DAILY Qty: 14 0RF naproxen 250 mg tablet 250 - 500 mg PO BID PRN (Reason: moderate pain and swelling) Qty: 40 0RF oxycodone 5 mg tablet 5 - 10 mg PO .q4-6h MDD 30 mg PRN (Reason: severe pain) Qty: 12 0RF Continued acetaminophen 500 mg tablet 1,000 mg PO Q8H PRN (Reason: pain) Qty: 90 3RF fluoxetine 40 mg capsule 40 mg PO QPM diphenhydramine HCl [Benadryl] 25 mg capsule 50 mg PO QHS Discontinued ibuprofen 800 mg tablet 800 mg PO Q8H PRN (Reason: pain) Qty: 40 0RF Rx Instructions: Left achilles pain Discharge Instructions Additional Instructions: Surgery: Left knee arthroscopy with partial medial & lateral meniscectomy, chondroplasty, and synovectomy 10/24/2024; Moderate tricompartmental arthritis Activity: Weightbearing as tolerated. Advance range of motion as comfort allows. No knee brace or crutches needed as soon as comfortable. Recommend avoiding sports, pivoting, and squatting for 6-8 weeks. A physical therapy prescription will be provided on follow-up if needed. Prescriptions: Aspirin 325 mg take 1 daily to prevent a blood clot for 14 days, starting tomorrow Naproxen 250 mg take 1-2 every 12 hours with a meal as needed for moderate pain Oxycodone 5 mg take 1-2 every 4-6 hours as needed for severe pain You may use [id number] Tylenol (acetaminophen) as needed for mild pain. These pain medications may be taken all at once or in different combinations as needed. Also, recommend Colace (docusate) as a stool softener as surgery and pain medicine cause constipation. You may try [id number] diphenhydramine (Benadryl) 25-50 mg nightly as a s leep aid Dressings: Leave dressing in place for 3 days. May then remove and leave open to air or cover incisions with Band-Aids. Leave the sticky Steri-Strips in place until they fall off or remove them after you shower. May shower after 5 days. Follow-up: 10-[address] Vera You may take off the leg compression stockings this evening at home. You may also leave them on a few days longer if you have a history of leg swelling or edema. Let us know right away if you develop any redness, drainage, fevers, chest pain, or trouble breathing. Do not drink alcohol or drive for at least 24 hours after anesthesia. Please call the office during business hours with any questions or concerns. Discharge Orders Discharge Orders: Discharge Order (Routine); Ordered 10/24/24 Ordered By: Amparo Owens DS: Diagnosis Discharge Diagnosis (1) Acute medial meniscus tear of left knee: Status: Acute (2) Chondromalacia of left knee: Status: Acute
--- NOTE | 2024-10-24 07:23 | W.PM.OP ---
Operative Note Operative Note PRE-OP DIAGNOSIS: Left knee 1. Medial meniscus tear 2. Synovitis 3. Chondromalacia POST-OP DIAGNOSIS: same PROCEDURE: Left knee 1. Partial medial & lateral meniscectomy, CPT #89046 2. Extensive synovectomy, CPT #69229: Suprapatellar, anterior medial, anterior lateral, and medial gutter plica. Removal of multiple small soft and cartilaginous loose bodies. 3. Chondroplasty, CPT #51612: Trochlea, medial, and lateral femoral condyle SURGEON: Sedrick Vera MARKETING OUTREACH COORDINATOR: None None ANESTHESIA TYPE: Local By Surgeon and Spinal Refer to Anesthesia Record ESTIMATED BLOOD LOSS: 5 PATHOLOGY: none sent TOURNIQUET TIME: 0 Patient was transported to: PACU Patient's condition: stable Indications: Please see complete medical record for details. Findings: Exam under anesthesia: Reasonably full range of motion, no instability Arthroscopic findings: Moderately significant tricompartmental degenerative changes including full-thickness central greater than 2 x 2 cm cartilage loss, moderate to high-grade posterior medial and posterior lateral femoral condyle cartilage loss. Loose unstable cartilage edges and flaps especially in the trochlea with small cartilage loose bodies throughout the knee joint. Moderately significant anterior, intercondylar, and suprapatellar synovitis. Ordaz medial plical band. Degenerative posterior horn medial meniscus white zone fraying tearing. Small lateral meniscus posterior horn near the root partial tear fraying. Procedure Description: In the operating room, general anesthesia was induced. The patient was positioned supine on the operating room table. All bony prominences were well-padded. Preoperative antibiotics were administered. The knee was prepped and draped in the usual sterile fashion. The correct patient, procedure, and side of the procedure were all verified prior to incision. Exam under anesthesia was performed. 10 cc of 0.25% bupivacaine containing epinephrine was infiltrated about the planned anteromedial and anterolateral knee arthroscopy portals. The portals were established and a complete diagnostic arthroscopy was performed with relevant findings detailed above. The mechanical shaver was used to remove synovitis from the anterior medial, anterior lateral, intercondylar and suprapatellar areas. Some suprapatellar adhesions were resected. In the medial gutter the biters shaver and radiofrequency ablator were used to remove a ordaz plical band. The shaver was then used in multiple compartments anterior medial lateral patellofemoral to remove a small cartilaginous and soft synovial tissue loose bodies. The meniscus biters were used to remove unstable cartilage edges and resect flaps especially in the central trochlear cartilage lesion and to a lesser extent in the posterior aspect of the medial and lateral femoral condyle cartilage lesions. The torpedo shaver was used to contour these meniscus lesions as best possible and minimize any prominences and impending loose bodies. The posterior horn of the medial meniscus and then the lateral meniscus near the root were then trimmed of partial tearing using the torpedo shaver to more stable margin. Under direct arthroscopic visualization an 18-gauge needle was passed into the knee from superolateral into the suprapatellar pouch. The knee was copiously irrigated with arthroscopic fluid until there was a clear effluent before being drained of all fluid. The anteromedial and anterolateral portals were closed in 3-0 Monocryl in a buried interrupted fashion. An additional 20 cc of 0.25% bupivacaine was infiltrated into the knee through the previously placed needle. Mastisol, Steri-Strips, and 4 x 4 gauze were applied over the incisions. The knee was then wrapped gently with an WOLF comressive bandage. Patient tolerated awake spinal anesthesia without complication and was transferred to the recovery room in a stable condition. We discussed the significance of his tricompartmental degenerative changes/arthritis and the potentially limited benefit of this arthroscopy. Previous steroid injection did not help. He has a contralateral TKA and might require TKA on this knee if symptoms persist or progress. Date of Procedure: 10/24/24
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
[2024-10-24] MEDS: Lactated Ringers 1,000 ML 30 ML IV (09:42)
[2024-10-24] MEDS: ceFAZolin 3,000 MG in Normal Saline 100 ML 200 MG IV (10:26)
[2024-10-24] MEDS: TRANEXAMIC ACID/SOD. CHL. 1,000 MG/100 ML BAG 600 MG IVPB (10:30)
[2024-10-24] MEDS: Bupivacaine 0.25% Pres-Free W/EPI 30 ML VIAL (10:55)
[2024-10-24] MEDS: EPINEPHrine 10 MG/10 ML ML (10:55)
--- NOTE | 2024-10-24 12:03 | W.ANESPOSTOP ---
Postoperative Evaluation Date, Time and Location Date Performed: 10/24/24 Time Performed: 12:03 Patient Location: PACU Vital Signs Most Recent Imported Vital Signs: Most Recent Vital Signs Temp Pulse Resp BP Pulse Ox 36.4 C L 63 11 L 111/59 L 99 10/24/24 11:35 10/24/24 11:46 10/24/24 11:46 10/24/24 11:46 10/24/24 11:46 Pain Score Most Recent Pain Score: Most Recent Pain Score Pain Level 0 10/24/24 11:50 Assessment Mental Status: Awake (Alert & Oriented to Patient Baseline) Airway and Respiratory Function: Patent airway with normal (patient baseline) respiratory exam Cardiovascular Function: Hemodynamically Stable Hydration Status: Adequately Hydrated Nausea & Vomiting: No Nausea or Vomiting Pain: Pt. Denies Any Pain (spinal still waning. ) Peripheral Nerve Block: Patient did not receive a nerve block
[2024-10-24] MEDS: oxyCODONE 5 MG TAB PO (12:36)
== END 2024-10-24 13:02 | disposition home or self-care (01) ==
LOC: SUR 08:47
PROVIDERS: PCP Nurse Practitioner Adult Health; Visit Provider Student in an Organized Health Care Education/Training Program
PROC: (CPT 29870; principal; 2024-10-24 09:30)
DX: S83.242A Other tear of medial meniscus, current injury, left knee, initial encounter (principal); M94.262 Chondromalacia, left knee; M65.962 Unspecified synovitis and tenosynovitis, left lower leg; I10 Essential (primary) hypertension
CPT/HCPCS: 29876; 29880; J0131; J0690; J1100; J1885; J2405

== ENCOUNTER 2025-01-27 10:36 | Emergency (ER) | payer BC, SELFPAY ==
[2025-01-27 10:37] VITALS: BP 147/91; PULSE 65; RESP 18; TEMP 36.6; O2SAT 97
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
[2025-01-27] MEDS: Acetaminophen 500 MG TAB 1000 MG PO (11:30)
[2025-01-27] MEDS: LORazepam 1 MG TAB PO (11:30)
[2025-01-27] MEDS: Ketorolac 30 MG/ML VIAL IM (11:31)
[2025-01-27] MEDS: Lidocaine 5% Patch 2 PATCH TP (11:31)
[2025-01-27 11:55] VITALS: BP 147/91; PULSE 66; RESP 20; TEMP 36.7; O2SAT 98
== END 2025-01-27 11:59 | disposition home or self-care (01) ==
PROVIDERS: Emergency Provider Physician Assistant; PCP Nurse Practitioner Adult Health
DX: S29.012A Strain of muscle and tendon of back wall of thorax, initial encounter (principal); M53.3 Sacrococcygeal disorders, not elsewhere classified
CPT/HCPCS: 99283; 99284; 96372; J1885

== ENCOUNTER 2025-03-16 22:01 | Emergency (ER) | payer BC, SELFPAY ==
[2025-03-16 22:03] VITALS: BP 164/99; PULSE 80; RESP 18; TEMP 35.8; O2SAT 97
--- NOTE | 2025-03-16 22:06 | W.ED.GENAD ---
Discharge Plan Disposition Patient Disposition: Home Condition: Good Discharge Details Clinical Impression: Hives of unknown origin Primary Care Provider: Alisa Lopez ED Provider: Phil Donohue [facility] Meds and New Rx's Prescriptions: New prednisone 20 mg tablet 40 mg PO HS Qty: 8 0RF famotidine 20 mg tablet 20 mg PO BID Qty: 20 0RF hydroxyzine HCl 25 mg tablet 25 - 50 mg PO TID PRN (Reason: itching) Qty: 20 0RF epinephrine [EpiPen 2-Jarrell] 0.3 mg/0.3 mL auto-injector 0.3 mg IM Q5-15M PRN (Reason: anaphylaxis) Qty: 2 0RF Rx Instructions: do not exceed 3 doses per episode Continued acetaminophen 500 mg tablet 1,000 mg PO Q8H PRN (Reason: pain) Qty: 90 3RF Held diphenhydramine HCl [Benadryl] 25 mg capsule 50 mg PO QHS Hold Instructions: while taking Atarax No Action celecoxib [Celebrex] 200 mg capsule 200 mg PO DAILY Qty: 90 0RF Discharge Instructions Instructions: Hives Additional Instructions: You were seen in the ED for hives/pruritus but no evidence of anaphylaxis. No clear etiology for this episode at this time. Hold diphenhydramine for now and picker feeder prescriptions tomorrow. EpiPen's provided in case of any anaphylactic type symptoms as we discussed. Follow-up with primary care. Return to ED for anaphylactic symptoms, chest pain, other concerns. Stand Alone Forms: Portal Information HPI General Mode of arrival: ambulatory. Date/Time Provider Initiated Documentation: 03/16/25 22:05. Limitations to Documentation: no limitations. Information obtained by: patient and RN notes reviewed. HPI Narrative: Patient presents to ED with complaint of rash and itching that began earlier today. He has been taking diphenhydramine without relief from the pruritus. It has been spreading and now involves the chest, neck, arms, proximal lower extremities. Denies any GI symptoms, difficulty breathing, throat symptoms. Denies any fever or URI type symptoms. Denies any change in soaps, detergents, food. Has known drug allergies to sulfa and amoxicillin but has not been on any antibiotics. Related Data Home Medications ?Medication ?Instructions ?Recorded ?Confirmed acetaminophen 500 mg tablet 1,000 mg (2 x 500 mg) PO Q8H PRN 05/29/19 03/16/25 pain #90 tabs diphenhydramine HCl 25 mg capsule 50 mg PO QHS 10/24/24 03/16/25 (Benadryl) celecoxib 200 mg capsule (Celebrex) 200 mg PO DAILY knee arthritis #90 12/23/24 03/16/25 Held on 01/27/25. caps Instructions: Resume on 02/10/25. HOLD while taking ketorolac/ibuprofen during acute treatment of this back pain epinephrine 0.3 mg/0.3 mL 0.3 mg (0.3 mL) IM Q5-15M PRN 03/16/25 injection, auto-injector (EpiPen anaphylaxis #2 ea 2-Jarrell) famotidine 20 mg tablet 20 mg PO BID #20 tabs 03/16/25 hydroxyzine HCl 25 mg tablet 25 - 50 mg (1 - 2 x 25 mg) PO TID 03/16/25 PRN itching #20 tabs prednisone 20 mg tablet 40 mg (2 x 20 mg) PO HS #8 tabs 03/16/25 Previous Rx's ?Medication ?Instructions ?Recorded acetaminophen 500 mg tablet 1,000 mg (2 x 500 mg) PO Q8H PRN 05/29/19 pain #90 tabs celecoxib 200 mg capsule (Celebrex) 200 mg PO DAILY knee arthritis #90 12/23/24 Held on 01/27/25. caps Instructions: Resume on 02/10/25. HOLD while taking ketorolac/ibuprofen during acute treatment of this back pain epinephrine 0.3 mg/0.3 mL 0.3 mg (0.3 mL) IM Q5-15M PRN 03/16/25 injection, auto-injector (EpiPen anaphylaxis #2 ea 2-Jarrell) famotidine 20 mg tablet 20 mg PO BID #20 tabs 03/16/25 hydroxyzine HCl 25 mg tablet 25 - 50 mg (1 - 2 x 25 mg) PO TID 03/16/25 PRN itching #20 tabs prednisone 20 mg tablet 40 mg (2 x 20 mg) PO HS #8 tabs 03/16/25 Allergies Allergy/AdvReac Type Severity Reaction Status Date / Time Sulfa (Sulfonamide Allergy Mild Hives Verified 03/16/25 22:08 Antibiotics) sulfamethoxazole (From Allergy Mild Itching Verified 03/16/25 22:08 Bactrim) trimethoprim (From Bactrim) Allergy Mild Itching Verified 03/16/25 22:08 amoxicillin (Amoxicillin) Allergy Unknown Hives Verified 03/16/25 22:08 amoxicillin trihydrate (From Allergy Unknown Hives Verified 03/16/25 22:08 Augmentin) General RANJIT: 3 Exam Narrative Exam Narrative: Const: WDWN male in NAD. VS per triage. HEENT: NC/AT. Normal facial exam. Neck: Supple. Trachea midline. Lungs: Normal respiratory effort. Lungs are clear. Cor: RRR without murmur. Good radial pulses. Neuro: A+O x 3. Normal speech, mentation, gait. Cranial nerves II - XII grossly intact. No gross motor or sensory deficit. Ext: No C/C/E. Skin: Diffuse hives. Medical Decision Making Patient presenting to ED with diffuse hives and no other symptoms to suggest anaphylaxis or viral illness. Unknown etiology but the pruritus is not responding to diphenhydramine and is to the point of being extremely uncomfortable. Will try Atarax to help with the pruritus. Will also dose with famotidine and prednisone. Will need prescriptions for same and follow-up with PCP. Return precautions provided. 23:15 - Patient did not get significant relief with po meds. He has no cardiovascular risk factors. Given 0.15 of subq epi with improvement, though still having some pruritus hives are feeding. Will discharge home at this time. Despite no evidence of anaphylaxis will provide prescription for EpiPen as well in case of future problems. He knows to follow-up with primary care. Quality:SDOH Health Related Social Needs: Health related social needs lonely/isolated Health related social needs details discussed with pt, I dont really like many people enjoy family/coworkers PFSH All Active Problems (Updated 03/16/25 @ 22:20 by Phil Donohue MD) Hives of unknown origin (Acute) Adjustment disorder with depressed mood (Acute ~01/2025) Arthritis of knee, left (Acute) DDD (degenerative disc disease), cervical (Acute) Effusion, left knee (Acute) Chondromalacia of left knee (Acute) Acute medial meniscus tear of left knee (Acute) Hypertriglyceridemia (Acute) Difficulty sleeping (Chronic) Stable on Fluoxetine Partial tear of left Achilles tendon (Acute ~07/2023) Internal derangement of left knee (Acute) Steroid injection: 12/18/2022 Popping of left knee joint (Acute) Cigar smoker (Acute) Back pain (Chronic) 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 Family history of alcoholism (Chronic 06/04/13) Obesity (Chronic 06/04/13) Family history of diabetes mellitus in father (Chronic) Migraine (Chronic) Hypertension (Chronic) Dx'ed 05/2019, started on Lisinopril 5mg Medical History Anxiety Chondromalacia patellae, right knee Chondromalacia, right knee Internal derangement of right knee (01/18/19) Femoral acetabular impingement Coccydynia Lumbar disc herniation History of low back pain Hx of migraines Sleep apnea (01/21/14) declines CPAP/BiPAP Elevated blood pressure reading (06/04/13) Complete tear, knee, anterior cruciate ligament (04/12/13) Repair 06-04-13 GERD (gastroesophageal reflux disease) Lifestyle controlled Surgical History History of total knee arthroplasty (05/28/19) RIGHT S/P tonsillectomy (~11/17/10) Repair, ACL (06/04/13) R ACL reconstruction-bone patellar tendon autograft-Dr Whitaker 11/17/15 removal hardware right proximal tibia Excision, Distal Clavicle (08/01/17) INGA PROCEDURE RIGHT- S/P Achilles tendon repair (02/04/14) Family History Father Essential hypertension Heart disease Hyperlipidemia Arthritis Other Alcohol abuse Social History Smoking/Tobacco Use Status: Current-Occasional Tobacco Type: cigars Quit status: has quit before Smoking risk assessment performed?: Yes Alcohol Intake: current Alcohol Intake frequency: a few times a week Alcohol type: hard liquor Drug use: Never Substance use type: does not use Adopted: No Caregiver/Support person: No Foster care: No Household members: family and children Housing: house Number of Children: 1 Communication Needs: None Education Level: high school Do you need help understanding health information?: Never 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: [employer]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[employer]; 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 Pets and animals: Yes Pets and animals: fish Sexually active: No Do you think of yourself as: straight/heterosexual Current gender identity: male What is your relationship status?: never How often do you talk on the phone with friends or family?: never How often do you get together with friends or relatives?: never How often do you attend zoroastrian or mormon services?: decline to answer Do you belong to any clubs or organized social groups?: no Panel score (0-1 are the most socially isolated patients): 0 What type of physical activity do you participate in: regular exercise and other Details: weight lifting Duration: 45-60 minutes/day Frequency: 3-4 times per week Magdalena/Orthodoxy: nor/huffman Seatbelt use: never Helmet use: Yes Drive intox or ride w/intox city route driver: No Working smoke detector in home: Yes Fire extinguisher in home: Yes Carbon monox detector in home: Yes Do you feel safe at home: Yes Do you feel safe in your relationship?: Yes
[2025-03-16] MEDS: predniSONE 20 MG TAB 60 MG PO (22:32)
[2025-03-16] MEDS: hydrOXYzine HCL 25 MG TAB PO (22:32)
[2025-03-16] MEDS: Famotidine 20 MG TAB 40 MG PO (22:32)
[2025-03-16] MEDS: EPINEPHrine 1 MG/ML AMP pres-free 0.15 MG SC (22:52)
[2025-03-16 22:55] VITALS: BP 159/100; PULSE 74; RESP 16; O2SAT 98
[2025-03-16 23:23] VITALS: BP 148/90; PULSE 72; RESP 16; O2SAT 98
== END 2025-03-16 23:25 | disposition home or self-care (01) ==
PROVIDERS: Emergency Provider Emergency Medicine; PCP Nurse Practitioner Adult Health
DX: L29.9 Pruritus, unspecified (principal)
CPT/HCPCS: 99283; 99284; 96372; J0166; J7512